=== PATIENT | female | born 1945 | race Caucasian/White ===

== ENCOUNTER 2021-11-27 16:36 | Observation (INO) ==
[2021-11-27] MEDS ORDERED: SODIUM CHLORIDE 500 ML IV STA (17:26)
[2021-11-27] MEDS ORDERED: ZOFRAN 4 MG/2 ML IVP ONE (17:26)
[2021-11-27] MEDS ORDERED: MORPHINE 2 MG/ML SYRINGE IVP ONE (17:26)
[2021-11-27 17:52] LABS: BASOPHILS # (AUTO) 0.1 K/uL (0-0.2); BASOPHILS % (AUTO) 0.8 % (0.0-3.0); EOSINOPHILS # (AUTO) 0.5 K/ul (0.0-0.7); EOSINOPHILS % (AUTO) 5.2 % (0.0-7.0); HEMATOCRIT 33.4 % (37.0-47.0); IMMATURE GRANULOCYTE % (AUTO) 0.3 % (0.0-5.0); LYMPHOCYTES # (AUTO) 3.5 K/uL (0.60-3.4); LYMPHOCYTES % (AUTO) 35.3 (10.0-50.0); MEAN CORPUSCULAR HEMOGLOBIN 26.6 pg (27.0-31.0); MEAN CORPUSCULAR HGB CONC 32.9 (31.8-35.4); MEAN CORPUSCULAR VOLUME 80.7 fl (81.0-99.0); MONOCYTES # (AUTO) 0.6 K/uL (0.4-2.0); MONOCYTES % (AUTO) 6.2 (0-10); NEUTROPHILS # (AUTO) 5.2 K/ul (2.0-6.9); NEUTROPHILS % (AUTO) 52.2 % (42.2-75.2); PLATELET COUNT 249 10^3/uL (140-440); RDW COEFFICIENT OF VARIATION 15.7 % (11.6-14.8); RED BLOOD COUNT 4.14 10^6/ul (4.20-5.40); WHITE BLOOD COUNT 9.87 K/ul (4.6-10.2)
[2021-11-27 17:57] LABS: ALANINE AMINOTRANSFERASE 22.4 U/L (0-35); ALBUMIN 3.99 g/dL (3.5-5.0); ALKALINE PHOSPHATASE 80.6 U/L (53-141); ASPARTATE AMINO TRANSFERASE 34.3 U/L (14-36); BILIRUBIN,TOTAL 0.29 mg/dL (0.2-1.3); BLOOD UREA NITROGEN 16.9 mg/dL (7-17); CALCIUM 9.38 mg/dL (8.4-10.2); CHLORIDE 99.1 mmol/L (98-107); CREATININE 0.83 mg/dL (0.60-1.30); GLUCOSE 187.2 mg/dL (74-106); POTASSIUM 3.74 mmol/L (3.5-5.1); SODIUM 135.4 mmol/L (134.5-145)
[2021-11-27 18:11] LABS: TROPONIN I < 0.012 ng/ml (0.0000-0.120)
--- NOTE | 2021-11-27 18:23 | CT ---
EXAM: CT scan cervical spine HISTORY: Fall COMPARISON CT scan cervical spine 08/07/2019 FINDINGS: Helically acquired axial images obtained through the cervical spine utilizing 2.5-mm colli mation. Sagittal and coronal reconstructions were imaged and reviewed.. The vertebral bodies are no rmal in height. There is 2.6 mm anterolisthesis C2/C3 and 1.7 mm anterolisthesis C7/T1. The facet j oints are intact. There is no acute fracture. There is multilevel central canal and foraminal steno sis. Visualized lung apices are clear. IMPRESSION: No acute findings. All CT scans are performed using dose optimization techniques as appropriate to the performed exam an d include at least one of the following: Automated exposure control, adjustment of the mA and/or kV according t o size, and the use of iterative reconstruction technique.
--- NOTE | 2021-11-27 18:23 | CT ---
EXAM: Brain CT without contrast 11/27/2021 INDICATION: Fall COMPARISON: CT head 08/12/2019. MRI brain 08/20/2021. TECHNIQUE: Unenhanced CT of the head was performed from the skull base to the vertex. FINDINGS: No intracranial hemorrhage or extra-axial collection. No mass, mass effect or midline shift. The garcia -white matter differentiation is preserved. There is generalized cerebral volume loss with compensato ry sulci. No hydrocephalous. There are patchy subcortical and periventricular white matter hypodens ities, most commonly seen in chronic white matter microvascular ischemic changes. The basal cisterns are patent. The visualized paranasal sinuses and mastoid air cells are clear. The orbits are unrem arkable. 1.8 cm intraosseous lucent lesion in the left parietal calvarium. Please review the report of the MRI brain from 08/20/2021. The visualized osseous structures are otherwise intact. Intracran ial vascular calcification. IMPRESSION: - No acute intracranial hemorrhage or mass effect. - 1.8 cm intraosseous lucent lesion in the left parietal calvarium. Please review the report of the MRI brain from 08/20/2021. - Senescent changes. All CT scans are performed using dose optimization techniques as appropriate to the performed exam an d include at least one of the following: Automated exposure control, adjustment of the mA and/or kV according t o size, and the use of iterative reconstruction technique.
[2021-11-27 18:25] LABS: ABG O2 HGB 89.3 % (95-100); ABG PH 7.46 (7.35-7.45); BEecf 8.2 (-2.0-3.0); COHb 1.2 (0.5-1.5); MetHb 1.1 (0-1.5); TCO2 33.4 (19-24)
--- NOTE | 2021-11-27 18:28 | CT ---
EXAM: CT scan chest without contrast HISTORY: Fall COMPARISON: CT scan chest 08/24/2021 FINDINGS: Helically acquired axial images obtained through the thorax without contrast utilizing 5-m m collimation. Sagittal coronal reconstructions were imaged and reviewed. The thoracic inlet is unr emarkable. The ascending aorta is ectatic measuring 3.4 cm. Heart is normal in size with no pericar dial effusion. There is mild coronary artery calcification. Calcification is seen involving mitral valve. Scarring versus atelectasis within the lingula .. Stable nodules are noted within the left l ower lobe. There is no consolidation or effusion. Bone windows reveals no evidence of lytic or tricia tic lesions. IMPRESSION: No acute intrathoracic findings.. Stable left lower lobe pulmonary nodules.. Atelectasis versus scarring within the lingula. All CT scans are performed using dose optimization techniques as appropriate to the performed exam an d include at least one of the following: Automated exposure control, adjustment of the mA and/or kV according t o size, and the use of iterative reconstruction technique.
--- NOTE | 2021-11-27 18:30 | CT ---
EXAM: Noncontrast CT of the abdomen and pelvis HISTORY: Abdominal pain, post surgical COMPARISON: 04/02/2021 TECHNIQUE: Axial noncontrast CT of the abdomen and pelvis with sagittal and coronal reformats. FINDINGS: CT chest CT report for chest findings. Noncontrast technique limits evaluation of abdominal viscera. The unenhanced liver is a mildly nodul ar contour. The gallbladder has been removed. The spleen measures 13.1 cm, increased compared the p rior exam. Punctate calcification of the left adrenal gland. The right adrenal gland appears unrema rkable. The unenhanced kidneys. The pancreas is mildly atrophic. The stomach appears within normal limits. No listhesis is seen without evidence of diverticulitis. The sigmoid colon is incidentally noted to exert mild mass effect on the bladder. There is to modera te colonic stool. Operative of small bowel are seen within the left hemiabdomen. The appendix is no t identified. Calcified atherosclerotic plaque of the aorta and its branches is seen. No free air or free fluid is identified. The peritoneal lymph nodes are seen which do not meet size criteria for significance. There is a mildly prominent periportal lymph node measuring 1.2 cm in the short axis, not significant changed. Osseous structures: There is acute nondisplaced fracture of the right 6th lateral rib. Degenerative changes of the spine are noted. IMPRESSION: Acute nondisplaced fracture of the right 6th lateral rib. No acute abdominal findings. Diverticulosis without evidence of diverticulitis. Mildly nodular hepatic contour suggesting possible cirrhosis. Mild splenomegaly. Other chronic and incidental findings as described above. Noncontrast exam. All CT scans are performed using dose optimization techniques as appropriate to the performed exam an d include at least one of the following: Automated exposure control, adjustment of the mA and/or kV according t o size, and the use of iterative reconstruction technique.
--- NOTE | 2021-11-27 19:29 | DI ---
EXAM: Right knee radiograph; four views 11/27/2021 HISTORY: Pain. Fall. COMPARISON: None. FINDINGS/IMPRESSION: No acute fracture. No dislocation. Tricompartmental degenerative changes. Repeat evaluation in 7-10 days recommended if symptoms persist.
--- NOTE | 2021-11-27 19:31 | DI ---
EXAM: Three views left foot HISTORY: Fall, pain COMPARISON: None available FINDINGS: There is a minimally displaced fracture of the distal aspect of the second proximal phalanx with poss ible extension to the articular surface. No other fracture or dislocation is identified. Small calc aneal spurs are seen. A screw is identified in the talus. No gross soft tissue abnormality is evide nt. IMPRESSION: Minimally displaced fracture of the distal aspect of the second proximal phalanx with possible extens ion to the interphalangeal joint.
[2021-11-27 20:02] LABS: BILIRUBIN,URINE Negative (NEGATIVE); CLARITY,URINE Clear (CLEAR); COLOR,URINE Yellow (YELLOW); GLUCOSE, URINE (UA) Negative (NEGATIVE); KETONES,URINE Negative (NEGATIVE); LEUKOCYTE ESTERASE ,URINE 1+ (NEGATIVE); NITRITE,URINE Negative (NEGATIVE); PROTEIN,URINE Negative (NEGATIVE); URINE, BLOOD Negative (NEGATIVE); UROBILINOGEN,URINE 0.2 (0.2)
[2021-11-27 20:06] LABS: SQUAMOUS EPITHELIAL CELL,UR 0-2 (0-5)
[2021-11-27] MEDS ORDERED: ROCEPHIN 1 GM/50 ML D5W 1 GM/50 ML BAG IV ONE (20:11)
[2021-11-27] MEDS ORDERED: ATROPINE SULFATE PFS IVP PRN ×2 (23:24→23:53)
[2021-11-27] MEDS ORDERED: NITROSTAT SL PRN ×2 (23:24→23:53)
[2021-11-27] MEDS ORDERED: TYLENOL PO PRN ×2 (23:24→23:47)
--- NOTE | 2021-11-28 00:09 | ED.PDOC ---
General ED Provider: Dr. KARYNA WHITE MD Chief Complaint: Chest Wall Injury/Pain Stated Complaint: right lateral chest wall pain x 3 days. fell and hit right side Time Seen by Provider: 11/27/21 16:40 Mode of Arrival: Wheelchair Information Source: Patient Primary Care Provider: SUNI YAO Nursing and Triage Documentation Reviewed and Agree: Yes Does patient meet sepsis criteria?: No If yes, has appropriate treatment been initiated?: No System Inflammatory Response Syndrome: Not Applicable Sepsis Protocol: For patient's 13 years and over: Temp is 96.8 and below OR 101 and greater Pulse >90 BPM Resp >20/minute Acutely Altered Mental Status Are patient's symptoms suggestive of a new infection, such as: -Pneumonia -Skin, Soft Tissue -Endocarditis -UTI -Bone, Joint Infection -Implantable Device -Acute Abdominal Infection -Wound Infection -Meningitis -Blood Stream Catheter Infection -Unknown Review of Systems Review Of Systems Constitutional: Reports No symptoms Eyes: Reports No symptoms Ears, Nose, Mouth, Throat: Reports No symptoms Respiratory: Reports Other (right chest wall pain) Cardiac: Reports No symptoms GI: Reports No symptoms : Reports No symptoms Musculoskeletal: Reports No symptoms Skin: Reports No symptoms Neurological: Reports No symptoms Endocrine: Reports No symptoms Hematologic/Lymphatic: Reports No symptoms All Other Systems: Reviewed and Negative [facility] Medical History Diabetes Seizure Social History Smoking and tobacco status: Never smoker Substance use type: does not use Female Reproductive History Menstrual Hx Hysterectomy: No Hx Tubal Ligation: No Physical Exam Physical Exam Appearance: Reports Well-appearing, No pain distress and Well-nourished Ill-appearing: None Pain Distress: None Eyes: Reports PARAM, EOMI and Conjunctiva clear ENT: Reports Ears normal, Nose normal and Oropharynx normal Neck: Supple Respiratory: Reports Airway patent, Breath sounds clear, Breath sounds equal, Respirations nonlabored and Other (mildly tender lateral right chest wall) Cardiovascular: Reports RRR, Pulses normal, No rub and No murmur GI/: Reports Soft, Nontender, No masses, Bowel sounds normal and No Organomegaly Musculoskeletal: Reports Normal strength, ROM intact, No edema and No calf tenderness Skin: Reports Warm, Dry and Normal color Neurological: Reports Sensation intact, Motor intact, Reflexes intact, Cranial nerves intact, Alert and Oriented Psychiatric: Reports Affect appropriate and Mood appropriate Interpretation Radiology Interpretation Radiology Interpretation By: Radiologist Xray Comments: see the report. Re-Evaluation Re-Evaluation Time of Re-Evaluation: 17:34 Status: Improved Vital Signs Stable: Yes Pain Level: 2 Appearance: NAD Lungs: Clear Skin: Warm and Dry Neuro: Alert and Oriented X3 CV: RRR Critical Care Note Critical Care Note Total Critical Care Time (mins): 0 Course Course Hematology/Chemistry: 11/28/21 05:40 11/28/21 05:40 Orders, Labs, Meds: Lab Review 11/27/21 11/27/21 11/27/21 12:03 17:42 17:42 WBC 9.87 RBC 4.14 L Hgb 11.0 L Hct 33.4 L MCV 80.7 L MCH 26.6 L MCHC 32.9 RDW Coeff of Alexander 15.7 H Plt Count 249 Immature Gran % (Auto) 0.3 Neut % (Auto) 52.2 Lymph % (Auto) 35.3 [place] % (Auto) 6.2 Eos % (Auto) 5.2 Baso % (Auto) 0.8 Neut # (Auto) 5.2 Lymph # (Auto) 3.5 H [place] # (Auto) 0.6 Eos # (Auto) 0.5 Baso # (Auto) 0.1 Immature Gran # (Auto) 0.0 Puncture Site Base Excess O2 Saturation ABG pH ABG pCO2 ABG pO2 ABG HCO3 ABG Total CO2 Hemoglobin Oxyhemoglobin Carboxyhemoglobin Total Hemoglobin FiO2 % Sodium 135.4 Potassium 3.74 Chloride 99.1 Carbon Dioxide 29.0 Anion Gap 11.04 BUN 16.9 Creatinine 0.83 Estimated GFR (MDRD) 67.00 BUN/Creatinine Ratio 20.36 Glucose 187.2 H Calcium 9.38 Total Bilirubin 0.29 AST 34.3 ALT 22.4 Alkaline Phosphatase 80.6 Total Creatine Kinase 44.3 Troponin I < 0.012 < 0.012 Total Protein 7.30 Albumin 3.99 Globulin 3.31 Albumin/Globulin Ratio 1.20 Urine Color Urine Clarity Urine pH Ur Specific [place] Urine Protein Urine Glucose (UA) Urine Ketones Urine Blood Urine Nitrite Urine Bilirubin Urine Urobilinogen Ur Leukocyte Esterase Urine Microscopic WBC Ur Squamous Epith Cells SARS CoV-2 RNA Rapid SABINA 11/27/21 11/27/2111/27/22 18:09 19:20 19:35 WBC RBC Hgb Hct MCV MCH MCHC RDW Coeff of Alexander Plt Count Immature Gran % (Auto) Neut % (Auto) Lymph % (Auto) [place] % (Auto) Eos % (Auto) Baso % (Auto) Neut # (Auto) Lymph # (Auto) [place] # (Auto) Eos # (Auto) Baso # (Auto) Immature Gran # (Auto) Puncture Site Lbrach Base Excess 8.2 H O2 Saturation 92.0 L ABG pH 7.46 H ABG pCO2 45.0 ABG pO2 60.0 L ABG HCO3 32.0 H ABG Total CO2 33.4 H Hemoglobin 1.1 Oxyhemoglobin 89.3 L Carboxyhemoglobin 1.2 Total Hemoglobin 11.0 L FiO2 % 21.0 Sodium Potassium Chloride Carbon Dioxide Anion Gap BUN Creatinine Estimated GFR (MDRD) BUN/Creatinine Ratio Glucose Calcium Total Bilirubin AST ALT Alkaline Phosphatase Total Creatine Kinase Troponin I Total Protein Albumin Globulin Albumin/Globulin Ratio Urine Color Yellow Urine Clarity Clear Urine pH 6.0 Ur Specific [place] 1.015 Urine Protein Negative Urine Glucose (UA) Negative Urine Ketones Negative Urine Blood Negative Urine Nitrite Negative Urine Bilirubin Negative Urine Urobilinogen 0.2 Ur Leukocyte Esterase 1+ H Urine Microscopic WBC 2-5 Ur Squamous Epith Cells 0-2 SARS CoV-2 RNA Rapid SABINA Negative Orders Category Date Time Status ABG DRAW REQUEST Stat CARDIO 11/27/21 17:29 Completed EKG-(ED ONLY) Stat CARDIO 11/27/21 17:26 Completed Saline Lock [ED IV/MEDIPORT/POWERPORT] .ONCE EMERGENCY 11/27/21 17:26 Active ABG COOX Stat LAB 11/27/21 18:09 Completed CBC W/ AUTO DIFF Stat LAB 11/27/21 17:42 Completed COMPREHENSIVE METABOLIC PANEL Stat LAB 11/27/21 17:42 Completed COVID [SARS COV-2 RNA RAPID SABINA] Stat LAB 11/27/21 19:20 Completed TROPONIN I Stat LAB 11/27/21 17:42 Completed URINALYSIS C & S IF INDICATED Stat LAB 11/27/21 19:35 Completed 0.9 % Sodium Chloride [Saline Flush] MEDS 11/27/21 17:26 Active 1 syr IVF PRN PRN Ceftriaxone/D5w 1 gm Premix [Rocephin 1 gm/50 ml D5w] MEDS 11/27/21 20:11 Discontinued 1 gm in 50 ml IV ONCE Morphine Sulfate [Morphine 2 mg/ml Syringe] MEDS 11/27/21 17:26 Discontinued 2 mg IVP ONCE ONE Ondansetron HCl/Pf [Zofran 4 mg/2 ml] MEDS 11/27/21 17:26 Discontinued 4 mg IVP ONCE ONE Sodium Chloride 0.9% [Sodium Chloride] 500 ml MEDS 11/27/21 17:[address] ABDOMEN/PELVIS WO CONTRAST Stat RADS 11/27/21 17:[address] CERVICAL SPINE W/O CONTRAST Stat RADS 11/27/21 17:[address] CHEST W/O CONTRAST Stat RADS 11/27/21 17:[address] HEAD W/O CONTRAST Stat RADS 11/27/21 17:26 Completed FOOT, LEFT 3 VIEWS Stat RADS 11/27/21 19:00 Completed KNEE, RIGHT 4 VIEWS Stat RADS 11/27/21 19:00 Completed Medications Generic Name Dose Route Start Last Admin Trade Name Kathleen PRN Reason Stop Dose Admin Acetaminophen 650 mg 11/28/21 21:00 Acetaminophen 325 Mg Tablet PO BID [facility] Acetaminophen 650 mg 11/28/21 11:30 Acetaminophen 325 Mg Tablet PO Q4H PRN Headache Allopurinol 300 mg 11/28/21 09:00 11/28/21 09:01 Allopurinol 100 Mg Tablet PO 300 mg DAILY AMPARO Administration Alprazolam 0.5 mg 11/28/21 00:26 Alprazolam 0.5 Mg Tablet PO BID PRN Anxiety Aspirin 81 mg 11/28/21 08:30 11/28/21 09:00 Aspirin 81 Mg Tablet. PO 81 mg DAILYWM AMPARO Administration Atropine Sulfate 0.5 mg 11/27/21 23:24 Atropine Sulfate Inj 1 Mg/10 Ml Disp.Syrin IVP ONCE PRN Symptomatic Bradycardia Cholecalciferol 1,000 unit 11/28/21 09:00 11/28/21 09:01 Cholecalciferol (Vitamin D3) 1,000 Unit (25 Mcg) Tablet PO 1,000 unit DAILY AMPARO Administration Cyclobenzaprine HCl 5 mg 11/28/21 21:00 Cyclobenzaprine Hcl 10 Mg Tablet PO BEDTIME [facility] Duloxetine HCl 60 mg 11/28/21 09:00 11/28/21 09:01 Duloxetine Hcl 30 Mg Capsule. PO 60 mg DAILY AMPARO Administration Gabapentin 200 mg 11/28/21 09:00 11/28/21 09:01 Gabapentin 100 Mg Capsule PO 200 mg DAILY AMPARO Administration Hydroxyzine HCl 25 mg 11/28/21 09:00 11/28/21 09:01 Hydroxyzine Hcl 25 Mg Tablet PO 25 mg DAILY AMPARO Administration Sodium Chloride 1,000 mls @ 75 mls/hr 11/27/21 23:45 11/28/21 01:03 Sodium Chloride IV 75 mls/hr .[id number] AMPARO Administration CEFTRIAXONE/D5W 1 GM PREMIX 1 gm in 50 mls @ 75 mls/hr 11/28/21 21:00 Rocephin 1 Gm/50 Ml D5w IV 12/01/21 20:59 BEDTIME AMPARO Loperamide HCl 2 mg 11/28/21 00:26 Loperamide Hcl 2 Mg Tablet PO Q2-4H PRN Diarrhea Loratadine 10 mg 11/28/21 00:43 Loratadine 10 Mg Tablet PO DAILY PRN Allergy Symptoms Meclizine HCl 25 mg 11/28/21 00:26 Meclizine Hcl 25 Mg Tablet PO DAILY PRN Dizziness Midodrine 2.5 mg 11/28/21 06:30 11/28/21 11:59 Midodrine Hcl 5 Mg Tablet PO 2.5 mg TIDAC AMPARO Administration Nitroglycerin 0.4 mg 11/27/21 23:24 Nitroglycerin 0.4 Mg Tab.Subl SL Q5MIN X 3 DOSES PRN Chest Pain Non-Formulary Medication 200 mg 11/28/21 09:00 11/28/21 09:05 Coenzyme Q10 [Coq-10] PO Not Given DAILY AMPARO Non-Formulary Medication 100 mg 11/28/21 09:00 11/28/21 09:05 Lacosamide PO Not Given BID AMPARO Non-Formulary Medication 7 mg 11/28/21 09:00 11/28/21 09:05 Semaglutide [Rybelsus] PO Not Given QDAC AMPARO Omeprazole 20 mg 11/28/21 09:00 11/28/21 09:00 Omeprazole 20 Mg Capsule. PO 20 mg QDAC AMPARO Administration Simvastatin 40 mg 11/28/21 21:00 Simvastatin 40 Mg Tablet PO BEDTIME AMPARO Sodium Chloride 1 syr 11/27/21 17:26 11/27/21 18:17 0.9% Sodium Chloride 10 Ml Disp.Syrin IVF 1 syr PRN PRN Administration To flush IV Sodium Chloride 1 syr 11/28/21 05:00 11/28/21 12:02 0.9% Sodium Chloride 10 Ml Disp.Syrin IVF Not Given Q8HR AMPARO Tramadol HCl 50 mg 11/28/21 21:00 Tramadol Hcl 50 Mg Tablet PO BID AMPARO Trazodone HCl 100 mg 11/28/21 00:30 11/28/21 01:00 Trazodone Hcl 50 Mg Tablet PO 100 mg BEDTIME AMPARO Administration Venlafaxine HCl 37.5 mg 11/28/21 21:00 Venlafaxine Hcl 37.5 Mg Cap.Er.24h PO BEDTIME AMPARO Venlafaxine HCl 75 mg 11/28/21 09:00 11/28/21 09:01 Venlafaxine Hcl 75 Mg Cap.Er.24h PO 75 mg DAILY AMPARO Administration Discontinued Medications Generic Name Dose Route Start Last Admin Trade Name Freq PRN Reason Stop Dose Admin Acetaminophen 650 mg 11/27/21 23:24 Acetaminophen 325 Mg Tablet PO Q4H PRN Headache Aspirin 81 mg 11/28/21 09:00 Aspirin 81 Mg Tablet.Dr PO DAILY [facility] Cyclobenzaprine HCl 5 mg 11/28/21 00:43 11/28/21 00:59 Cyclobenzaprine Hcl 10 Mg Tablet PO 11/28/21 00:44 5 mg ONCE STA Administration Sodium Chloride 500 mls @ 500 mls/hr 11/27/21 17:26 11/27/21 18:15 Sodium Chloride IV 11/27/21 18:25 500 mls/hr BOLUS STA Administration CEFTRIAXONE/D5W 1 GM PREMIX 1 gm in 50 mls @ 75 mls/hr 11/27/21 20:11 11/27/21 20:44 Rocephin 1 Gm/50 Ml D5w IV 11/27/21 20:50 75 mls/hr ONCE ONE Administration Ketorolac Tromethamine 15 mg 11/28/21 11:16 11/28/21 12:32 Ketorolac Tromethamine 15 Mg/Ml Vial IVP 11/28/21 11:17 15 mg ONCE ONE Administration Morphine Sulfate 2 mg 11/27/21 17:26 11/27/21 18:21 Morphine Sulfate 2 Mg/Ml Syringe IVP 11/27/21 17:27 2 mg ONCE ONE Administration Ondansetron HCl 4 mg 11/27/21 17:26 11/27/21 18:18 Ondansetron Hcl/Pf 4 Mg/2 Ml Sdv IVP 11/27/21 17:27 4 mg ONCE ONE Administration Vital Signs: Temp Pulse Resp BP Pulse Ox 11/27/21 16:37 98.3 F 93 H 20 160/90 H 94 L Discharge Plan Discharge Patient Disposition: ADMITTED INPATIENT Discharge Problem: UTI (urinary tract infection), Chest wall pain 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
[2021-11-28 00:20] VITALS: BMI 34.4
[2021-11-28 00:20] LABS: CREATINE KINASE 44.3 U/L (30-135)
[2021-11-28] MEDS ORDERED: ANTIVERT PO PRN (00:26)
[2021-11-28] MEDS ORDERED: XANAX PO PRN (00:26)
[2021-11-28] MEDS ORDERED: IMODIUM PO PRN (00:26)
[2021-11-28 00:34] LABS: TROPONIN I < 0.012 ng/ml (0.0000-0.120)
[2021-11-28] MEDS ORDERED: FLEXERIL PO STA (00:43)
[2021-11-28] MEDS ORDERED: CLARITIN PO PRN (00:43)
[2021-11-28] MEDS: DESYREL PO SCH ×2 (01:00→20:30)
[2021-11-28] MEDS: SODIUM CHLORIDE 1,000 ML IV SCH ×2 (01:03→13:33)
[2021-11-28] MEDS: MIDODRINE PO SCH ×3 (05:33→16:24)
[2021-11-28 05:48] LABS: BASOPHILS # (AUTO) 0.1 K/uL (0-0.2); BASOPHILS % (AUTO) 1.1 % (0.0-3.0); EOSINOPHILS # (AUTO) 0.5 K/ul (0.0-0.7); EOSINOPHILS % (AUTO) 6.4 % (0.0-7.0); HEMATOCRIT 32.4 % (37.0-47.0); HEMOGLOBIN 10.4 g/dl (12.0-16.0); IMMATURE GRANULOCYTE % (AUTO) 0.1 % (0.0-5.0); LYMPHOCYTES # (AUTO) 2.4 K/uL (0.60-3.4); LYMPHOCYTES % (AUTO) 33.4 (10.0-50.0); MEAN CORPUSCULAR HEMOGLOBIN 26.1 pg (27.0-31.0); MEAN CORPUSCULAR HGB CONC 32.1 (31.8-35.4); MEAN CORPUSCULAR VOLUME 81.4 fl (81.0-99.0); MONOCYTES # (AUTO) 0.4 K/uL (0.4-2.0); MONOCYTES % (AUTO) 5.5 (0-10); NEUTROPHILS # (AUTO) 3.9 K/ul (2.0-6.9); NEUTROPHILS % (AUTO) 53.5 % (42.2-75.2); PLATELET COUNT 212 10^3/uL (140-440); RDW COEFFICIENT OF VARIATION 15.8 % (11.6-14.8); RED BLOOD COUNT 3.98 10^6/ul (4.20-5.40); WHITE BLOOD COUNT 7.31 K/ul (4.6-10.2)
[2021-11-28 06:01] LABS: ALANINE AMINOTRANSFERASE 19.3 U/L (0-35); ALBUMIN 3.72 g/dL (3.5-5.0); ALKALINE PHOSPHATASE 81.7 U/L (53-141); ASPARTATE AMINO TRANSFERASE 27.9 U/L (14-36); BILIRUBIN,TOTAL 0.22 mg/dL (0.2-1.3); BLOOD UREA NITROGEN 13.1 mg/dL (7-17); CALCIUM 8.89 mg/dL (8.4-10.2); CARBON DIOXIDE 32.2 mmol/L (22-30.0); CHLORIDE 100.5 mmol/L (98-107); CREATININE 0.88 mg/dL (0.60-1.30); GLUCOSE 175.3 mg/dL (74-106); POTASSIUM 3.67 mmol/L (3.5-5.1); SODIUM 138.6 mmol/L (134.5-145); TOTAL PROTEIN 6.86 g/dL (6.3-8.2)
[2021-11-28 07:58] LABS: CREATINE KINASE 42.5 U/L (30-135)
[2021-11-28 08:13] LABS: TROPONIN I < 0.012 ng/ml (0.0000-0.120)
[2021-11-28] MEDS ORDERED: ASPIRIN EC PO SCH (09:00)
[2021-11-28] MEDS: PRILOSEC PO SCH (09:00)
[2021-11-28] MEDS: ASPIRIN EC PO SCH (09:00)
[2021-11-28] MEDS: VITAMIN D PO SCH (09:01)
[2021-11-28] MEDS: CYMBALTA PO SCH (09:01)
[2021-11-28] MEDS: ZYLOPRIM PO SCH (09:01)
[2021-11-28] MEDS: EFFEXOR XR PO SCH ×2 (09:01→20:30)
[2021-11-28] MEDS: ATARAX PO SCH (09:01)
[2021-11-28] MEDS: NEURONTIN PO SCH (09:01)
[2021-11-28] MEDS: NON-FORMULARY MEDICATION (Coenzyme Q10 [Coq-10] 100 mg Capsule) PO SCH (09:05)
[2021-11-28] MEDS: LACOSAMIDE 100 MG PO SCH ×2 (09:05→20:30)
[2021-11-28] MEDS ORDERED: TORADOL IVP ONE (11:16)
[2021-11-28] MEDS: FLEXERIL PO SCH (20:29)
[2021-11-28] MEDS: ZOCOR PO SCH (20:30)
[2021-11-28] MEDS: TYLENOL PO SCH (20:30)
[2021-11-28] MEDS: ULTRAM PO SCH (20:30)
[2021-11-28] MEDS ORDERED: ROCEPHIN 1 GM/50 ML D5W 1 GM/50 ML BAG IV SCH (21:00)
[2021-11-28] MEDS ORDERED: VENLAFAXINE 37.5 MG PO SCH (21:00)
[2021-11-29] MEDS: SODIUM CHLORIDE 1,000 ML IV SCH ×3 (00:42→13:06)
[2021-11-29 05:08] LABS: BASOPHILS # (AUTO) 0.1 K/uL (0-0.2); BASOPHILS % (AUTO) 0.9 % (0.0-3.0); EOSINOPHILS # (AUTO) 0.5 K/ul (0.0-0.7); EOSINOPHILS % (AUTO) 6.9 % (0.0-7.0); HEMATOCRIT 30.5 % (37.0-47.0); HEMOGLOBIN 9.7 g/dl (12.0-16.0); IMMATURE GRANULOCYTE % (AUTO) 0.4 % (0.0-5.0); LYMPHOCYTES # (AUTO) 2.6 K/uL (0.60-3.4); LYMPHOCYTES % (AUTO) 33.2 (10.0-50.0); MEAN CORPUSCULAR HEMOGLOBIN 26.1 pg (27.0-31.0); MEAN CORPUSCULAR HGB CONC 31.8 (31.8-35.4); MEAN CORPUSCULAR VOLUME 82.2 fl (81.0-99.0); MONOCYTES # (AUTO) 0.5 K/uL (0.4-2.0); MONOCYTES % (AUTO) 6.6 (0-10); PLATELET COUNT 219 10^3/uL (140-440); RDW COEFFICIENT OF VARIATION 15.9 % (11.6-14.8); RED BLOOD COUNT 3.71 10^6/ul (4.20-5.40); WHITE BLOOD COUNT 7.77 K/ul (4.6-10.2)
[2021-11-29 05:22] LABS: ALANINE AMINOTRANSFERASE 19.1 U/L (0-35); ALBUMIN 3.34 g/dL (3.5-5.0); ALKALINE PHOSPHATASE 80.9 U/L (53-141); BILIRUBIN,TOTAL 0.14 mg/dL (0.2-1.3); BLOOD UREA NITROGEN 14.2 mg/dL (7-17); CALCIUM 8.74 mg/dL (8.4-10.2); CARBON DIOXIDE 25.5 mmol/L (22-30.0); CHLORIDE 104.1 mmol/L (98-107); CREATININE 0.9 mg/dL (0.60-1.30); GLUCOSE 193.8 mg/dL (74-106); POTASSIUM 3.77 mmol/L (3.5-5.1); SODIUM 135.9 mmol/L (134.5-145); TOTAL PROTEIN 6.31 g/dL (6.3-8.2)
[2021-11-29] MEDS: PRILOSEC PO SCH (05:55)
[2021-11-29] MEDS: MIDODRINE PO SCH (06:47)
[2021-11-29] MEDS: ASPIRIN EC PO SCH (08:58)
[2021-11-29] MEDS: NEURONTIN PO SCH (08:58)
[2021-11-29] MEDS: TYLENOL PO SCH ×2 (08:59→20:38)
[2021-11-29] MEDS: EFFEXOR XR PO SCH ×2 (09:00→20:37)
[2021-11-29] MEDS: VITAMIN D PO SCH (09:01)
[2021-11-29] MEDS: CYMBALTA PO SCH (09:02)
[2021-11-29] MEDS: ZYLOPRIM PO SCH (09:02)
[2021-11-29] MEDS: ULTRAM PO SCH ×2 (09:03→20:37)
[2021-11-29] MEDS: ATARAX PO SCH (09:04)
[2021-11-29] MEDS: LACOSAMIDE 100 MG PO SCH ×2 (09:07→20:40)
[2021-11-29] MEDS: NON-FORMULARY MEDICATION (Coenzyme Q10 [Coq-10] 100 mg Capsule) PO SCH (09:16)
[2021-11-29] MEDS ORDERED: MIDODRINE PO SCH (11:00)
[2021-11-29] MEDS ORDERED: TORADOL IVP ONE (12:35)
[2021-11-29] MEDS ORDERED: MIDODRINE PO PRN (16:16)
[2021-11-29] MEDS: KEFLEX PO SCH ×2 (17:36→20:37)
[2021-11-29] MEDS: TYLENOL PO PRN (17:37)
[2021-11-29] MEDS: FLEXERIL PO SCH (20:35)
[2021-11-29] MEDS: ZOCOR PO SCH (20:37)
[2021-11-29] MEDS: DESYREL PO SCH (20:38)
[2021-11-29] MEDS: TORADOL IVP SCH (20:39)
[2021-11-30] MEDS: SODIUM CHLORIDE 1,000 ML IV SCH (02:28)
[2021-11-30 05:29] LABS: BASOPHILS # (AUTO) 0.1 K/uL (0-0.2); EOSINOPHILS # (AUTO) 0.6 K/ul (0.0-0.7); EOSINOPHILS % (AUTO) 9.3 % (0.0-7.0); HEMATOCRIT 31.6 % (37.0-47.0); HEMOGLOBIN 10.3 g/dl (12.0-16.0); IMMATURE GRANULOCYTE % (AUTO) 0.3 % (0.0-5.0); LYMPHOCYTES % (AUTO) 33.7 (10.0-50.0); MEAN CORPUSCULAR HEMOGLOBIN 26.8 pg (27.0-31.0); MEAN CORPUSCULAR HGB CONC 32.6 (31.8-35.4); MEAN CORPUSCULAR VOLUME 82.1 fl (81.0-99.0); MONOCYTES # (AUTO) 0.4 K/uL (0.4-2.0); MONOCYTES % (AUTO) 6.3 (0-10); NEUTROPHILS % (AUTO) 49.4 % (42.2-75.2); PLATELET COUNT 212 10^3/uL (140-440); RDW COEFFICIENT OF VARIATION 15.8 % (11.6-14.8); RED BLOOD COUNT 3.85 10^6/ul (4.20-5.40); WHITE BLOOD COUNT 6.05 K/ul (4.6-10.2)
[2021-11-30 05:44] LABS: ALANINE AMINOTRANSFERASE 22.5 U/L (0-35); ALBUMIN 3.32 g/dL (3.5-5.0); ALKALINE PHOSPHATASE 78.8 U/L (53-141); ASPARTATE AMINO TRANSFERASE 29.7 U/L (14-36); BILIRUBIN,TOTAL 0.19 mg/dL (0.2-1.3); BLOOD UREA NITROGEN 12.6 mg/dL (7-17); CALCIUM 8.78 mg/dL (8.4-10.2); CARBON DIOXIDE 28.6 mmol/L (22-30.0); CHLORIDE 103.8 mmol/L (98-107); CREATININE 0.85 mg/dL (0.60-1.30); POTASSIUM 3.83 mmol/L (3.5-5.1); SODIUM 138.7 mmol/L (134.5-145); TOTAL PROTEIN 6.23 g/dL (6.3-8.2)
[2021-11-30] MEDS: KEFLEX PO SCH ×3 (05:58→20:36)
[2021-11-30] MEDS: TORADOL IVP SCH (05:58)
[2021-11-30] MEDS: PRILOSEC PO SCH (05:58)
[2021-11-30] MEDS: ATARAX PO SCH (09:44)
[2021-11-30] MEDS: TYLENOL PO PRN (09:44)
[2021-11-30] MEDS: CYMBALTA PO SCH (09:44)
[2021-11-30] MEDS: EFFEXOR XR PO SCH ×2 (09:44→20:36)
[2021-11-30] MEDS: ASPIRIN EC PO SCH (09:45)
[2021-11-30] MEDS: ZYLOPRIM PO SCH (09:45)
[2021-11-30] MEDS: NEURONTIN PO SCH (09:45)
[2021-11-30] MEDS: VITAMIN D PO SCH (09:46)
[2021-11-30] MEDS: ULTRAM PO SCH ×3 (09:46→20:36)
[2021-11-30] MEDS: TYLENOL PO SCH ×2 (09:47→20:37)
[2021-11-30] MEDS: LACOSAMIDE 100 MG PO SCH ×2 (09:48→20:35)
[2021-11-30] MEDS: NON-FORMULARY MEDICATION (Coenzyme Q10 [Coq-10] 100 mg Capsule) PO SCH (09:49)
--- NOTE | 2021-11-30 09:54 | PCM.PROG ---
Attending Provider: ATTENDING PROVIDER: Dr. SUNI YAO This patient is seen with Savannah Washington, Nurse Practitioner. DATE OF SERVICE: 11/30/21 SUBJECTIVE: This 76 year old /WHITE F was hospitalized 11/27/21. Pain has been controlled. Has been eating well. Has not been up much, we will do PT consult. REVIEW OF SYSTEMS: CONSTITUTIONAL: No night sweats. No fatigue, malaise, lethargy. No fever or chills. Weakness. HEENT: Eyes: No visual changes. No eye pain. No eye discharge. ENT: No runny nose. No epistaxis. No sinus pain. No odynophagia. No congestion. RESPIRATORY: No cough, no congestion. No hemoptysis. No shortness of breath. CARDIOVASCULAR: No angina symptoms. No CHF symptoms. No atypical chest pain for CAD. No palpitations. No orthopnea.. GASTROINTESTINAL: No abdominal pain. No nausea or vomiting. No diarrhea or constipation. No hematemesis. No hematochezia. GENITOURINARY: No urgency. No frequency. No dysuria. No hematuria. No obstructive symptoms. No discharge. No pain. No significant abnormal bleeding. MUSCULOSKELETAL: No musculoskeletal pain; no joint swelling. Right side pain. NEUROLOGICAL: Awake, alert, oriented to time, place and person. No headache. No neck pain. No syncope. No seizures. No dizziness. PSYCHIATRIC: Not anxious. No depression. No suicidal thoughts. No homicidal thoughts. SKIN: No rash. No lesions. No wounds. ENDOCRINE: No unexplained weight loss. No weight gain. HEMATOLOGIC/LYMPHATIC: No anemia. No purpura. No petechiae. No prolonged or excessive bleeding. No palpable lymph nodes. PHYSICAL EXAMINATION: GENERAL: The patient is awake, alert and oriented, sitting in bed in no distress. VITAL SIGNS: Temperature 97 F, Pulse 94, Respiratory Rate 20, BP 142/86, Pulse Ox 93% HEENT: Head normocephalic, atraumatic. Eyes: Extraocular muscles are intact. Pupils are equal, round and reactive to light and accommodation. Ears: No lesions. Nose appeared normal. Throat: No exudate or erythema. NECK: Supple. No JVD, no carotid bruit. No lymphadenopathy or thyromegaly. LUNGS: Diminished breath sounds. Clear to auscultation. Percussion note normal. Chest symmetrical. HEART: S1, S2, no S3. No murmurs. Palpable right chest wall pain. No cyanosis or clubbing. No ascites. Pulses: Dorsalis pedis and posterior tibial pulses +1 to +2 both sides. ABDOMEN: Soft. Non-tender. Bowel sounds active. No CVA tenderness. No mass felt. EXTREMITIES: No edema. Full range of motion of all extremities, equal. NEUROLOGIC: No focal deficit. Cranial nerves II through XII are grossly intact. No headache. No double vision. SKIN: Not dry. Intact. Turgor-normal. LYMPHATIC: No palpable lymph nodes/no lymphedema. MUSCULOSKELETAL: Normal joints with no swelling. Muscle tone is normal. LAB REVIEW: 11/30/21 04:48 11/30/21 04:48 11/30/21 04:48: Sodium 138.7, Potassium 3.83, Chloride 103.8, Carbon Dioxide 28.6, Anion Gap 10.13, BUN 12.6, Creatinine 0.85, Estimated GFR (MDRD) 65.00, BUN/Creatinine Ratio 14.82, Glucose 192.0 H, Calcium 8.78, Total Bilirubin 0.19 L, AST 29.7, ALT 22.5, Alkaline Phosphatase 78.8, Total Protein 6.23 L, Albumin 3.32 L, Globulin 2.91, Albumin/Globulin Ratio 1.14 11/30/21 04:48: WBC 6.05, RBC 3.85 L, Hgb 10.3 L, Hct 31.6 L, MCV 82.1, MCH 26.8 L, MCHC 32.6, RDW Coeff of Alexander 15.8 H, Plt Count 212, Immature Gran % (Auto) 0.3, Neut % (Auto) 49.4, Lymph % (Auto) 33.7, [place] % (Auto) 6.3, Eos % (Auto) 9.3 H, Baso % (Auto) 1.0, Neut # (Auto) 3.0, Lymph # (Auto) 2.0, [place] # (Auto) 0.4, Eos # (Auto) 0.6, Baso # (Auto) 0.1, Immature Gran # (Auto) 0.0 ASSESSMENT: Please see below. 1. Status post fall 2. Right chest wall pain 3. Right 6th rib fracture 4. UTI 5. Diabetes Mellitus type II PLAN: 1. Discontinue Toradol 2. Discontinue IV fluid 3. Tramadol 50mg TID scheduled 4. PT/OT consult 5. Anticipate possible discharge tomorrow. Plan and coordination of the patient's care discussed in the presence of Director Family and nurse. SCRIBED BY: Torrey JOHNSON scribed while in presence of service performed by Dr. Yao/Savannah Washington APRN on 11/30/21 ([id number])
--- NOTE | 2021-11-30 13:43 | PN ---
DATE OF SERVICE: 11/27/21 SUBJECTIVE: The patient was admitted through the emergency room, she had fallen at home and had left sided chest pain. On further workup the patient had fracture of the 6th rib. No pneumothorax according to the Dr. Martinez. The patient's arterial blood gasses were acceptable, pO2 60 and oxygen saturation of 92% on room air. The patient has multiple other medical problems. Cardiovascular status is stable. She is going to be hospitalized with left sided chest pain with fracture of the right 6th rib. The patient will be treated for pain control. We will monitor with telemetry. TIME SPENT: More than 30 minutes. Plan and coordination of the patient's care discussed in the presence of nurse. HERACLIO
[2021-11-30] MEDS: FLEXERIL PO SCH (20:36)
[2021-11-30] MEDS: DESYREL PO SCH (20:36)
[2021-11-30] MEDS: ZOCOR PO SCH (20:37)
[2021-12-01] MEDS: TYLENOL PO PRN (01:52)
[2021-12-01 05:06] LABS: BASOPHILS # (AUTO) 0.1 K/uL (0-0.2); BASOPHILS % (AUTO) 0.9 % (0.0-3.0); EOSINOPHILS # (AUTO) 0.6 K/ul (0.0-0.7); EOSINOPHILS % (AUTO) 9.1 % (0.0-7.0); HEMOGLOBIN 10.2 g/dl (12.0-16.0); IMMATURE GRANULOCYTE % (AUTO) 0.3 % (0.0-5.0); LYMPHOCYTES # (AUTO) 2.2 K/uL (0.60-3.4); LYMPHOCYTES % (AUTO) 31.8 (10.0-50.0); MEAN CORPUSCULAR HEMOGLOBIN 26.8 pg (27.0-31.0); MEAN CORPUSCULAR HGB CONC 32.9 (31.8-35.4); MEAN CORPUSCULAR VOLUME 81.6 fl (81.0-99.0); MONOCYTES # (AUTO) 0.4 K/uL (0.4-2.0); MONOCYTES % (AUTO) 5.5 (0-10); NEUTROPHILS # (AUTO) 3.6 K/ul (2.0-6.9); NEUTROPHILS % (AUTO) 52.4 % (42.2-75.2); PLATELET COUNT 216 10^3/uL (140-440); RDW COEFFICIENT OF VARIATION 15.9 % (11.6-14.8); WHITE BLOOD COUNT 6.85 K/ul (4.6-10.2)
[2021-12-01 05:17] LABS: ALBUMIN 3.27 g/dL (3.5-5.0); ALKALINE PHOSPHATASE 77.4 U/L (53-141); ASPARTATE AMINO TRANSFERASE 25.2 U/L (14-36); BILIRUBIN,TOTAL 0.3 mg/dL (0.2-1.3); BLOOD UREA NITROGEN 13.1 mg/dL (7-17); CALCIUM 9.07 mg/dL (8.4-10.2); CARBON DIOXIDE 31.7 mmol/L (22-30.0); CHLORIDE 102.3 mmol/L (98-107); CREATININE 0.92 mg/dL (0.60-1.30); GLUCOSE 170.3 mg/dL (74-106); POTASSIUM 3.74 mmol/L (3.5-5.1); SODIUM 137.9 mmol/L (134.5-145); TOTAL PROTEIN 6.25 g/dL (6.3-8.2)
[2021-12-01] MEDS: PRILOSEC PO SCH (05:30)
[2021-12-01] MEDS: KEFLEX PO SCH ×3 (05:30→20:21)
[2021-12-01] MEDS ORDERED: DECADRON IM ONE (09:05)
--- NOTE | 2021-12-01 09:11 | PCM.PROG ---
Attending Provider: ATTENDING PROVIDER: Dr. SUNI YAO DATE OF SERVICE: 12/01/21 SUBJECTIVE: This 76 year old /WHITE F was hospitalized 11/27/21 with 6th right rib fracture, still has pleuritic pain and mild cough. Pain is still there. Pain as described sharp pain rated at 4. REVIEW OF SYSTEMS: CONSTITUTIONAL: No night sweats. No fatigue, malaise, lethargy. No fever or chills. HEENT: Eyes: No visual changes. No eye pain. No eye discharge. ENT: No runny nose. No epistaxis. No sinus pain. No odynophagia. No congestion. RESPIRATORY: No cough, no congestion. No hemoptysis. No shortness of breath. CARDIOVASCULAR: No angina symptoms. No CHF symptoms. No atypical chest pain for CAD. No palpitations. No orthopnea.. GASTROINTESTINAL: No abdominal pain. No nausea or vomiting. No diarrhea or constipation. No hematemesis. No hematochezia. GENITOURINARY: No urgency. No frequency. No dysuria. No hematuria. No obstructive symptoms. No discharge. No pain. No significant abnormal bleeding. MUSCULOSKELETAL: No musculoskeletal pain; no joint swelling. NEUROLOGICAL: Awake, alert, oriented to time, place and person. No headache. No neck pain. No syncope. No seizures. No dizziness. PSYCHIATRIC: Not anxious. No depression. No suicidal thoughts. No homicidal thoughts. SKIN: No rash. No lesions. No wounds. ENDOCRINE: No unexplained weight loss. No weight gain. HEMATOLOGIC/LYMPHATIC: No anemia. No purpura. No petechiae. No prolonged or excessive bleeding. No palpable lymph nodes. PHYSICAL EXAMINATION: GENERAL: The patient is awake, alert and oriented, sitting in bed in no distress. VITAL SIGNS: Temperature 97.9 F, Pulse 88, Respiratory Rate 18, BP 140/72, Pulse Ox 94% HEENT: Head normocephalic, atraumatic. Eyes: Extraocular muscles are intact. Pupils are equal, round and reactive to light and accommodation. Ears: No lesions. Nose appeared normal. Throat: No exudate or erythema. NECK: Supple. No JVD, no carotid bruit. No lymphadenopathy or thyromegaly. LUNGS: Clear to auscultation. Percussion note normal. Chest symmetrical. HEART: S1, S2, no S3. No murmurs. No cyanosis or clubbing. No ascites. Pulses: Dorsalis pedis and posterior tibial pulses +1 to +2 both sides. ABDOMEN: Soft. Non-tender. Bowel sounds active. No CVA tenderness. No mass felt. Right side little bruised right rib cage posterior. No crepitation on palpation. EXTREMITIES: No edema. Full range of motion of all extremities, equal. NEUROLOGIC: No focal deficit. Cranial nerves II through XII are grossly intact. No headache, no double vision or headache. SKIN: Warm and dry. Intact. Turgor-normal. LYMPHATIC: No palpable lymph nodes/no lymphedema. MUSCULOSKELETAL: Normal joints with no swelling. Muscle tone is normal. LAB REVIEW: 12/01/21 04:42 12/01/21 04:42 12/01/21 04:42: Sodium 137.9, Potassium 3.74, Chloride 102.3, Carbon Dioxide 31.7 H, Anion Gap 7.64, BUN 13.1, Creatinine 0.92, Estimated GFR (MDRD) 59.00, BUN/Creatinine Ratio 14.23, Glucose 170.3 H, Calcium 9.07, Total Bilirubin 0.30, AST 25.2, ALT 20.0, Alkaline Phosphatase 77.4, Total Protein 6.25 L, Albumin 3.27 L, Globulin 2.98, Albumin/Globulin Ratio 1.09 12/01/21 04:42: WBC 6.85, RBC 3.80 L, Hgb 10.2 L, Hct 31.0 L, MCV 81.6, MCH 26.8 L, MCHC 32.9, RDW Coeff of Alexander 15.9 H, Plt Count 216, Immature Gran % (Auto) 0.3, Neut % (Auto) 52.4, Lymph % (Auto) 31.8, [place] % (Auto) 5.5, Eos % (Auto) 9.1 H, Baso % (Auto) 0.9, Neut # (Auto) 3.6, Lymph # (Auto) 2.2, [place] # (Auto) 0.4, Eos # (Auto) 0.6, Baso # (Auto) 0.1, Immature Gran # (Auto) 0.0 ASSESSMENT: Please see below. 1. Rib fracture with pain 2. Mild bronchitis PLAN: 1. Decadron IM today 2. Pain medication as described. 3. Antibiotics as described Plan and coordination of the patient's care discussed in the presence of Sales Process Manager and nurse. EDUCATION: CONDITION: Stable SCRIBED BY: Torrey JOHNSON scribed while in presence of service performed by Dr. SUNI YAO on 12/01/21 ([id number])
[2021-12-01] MEDS: ZYLOPRIM PO SCH (09:25)
[2021-12-01] MEDS: CYMBALTA PO SCH (09:25)
[2021-12-01] MEDS: TYLENOL PO SCH ×2 (09:25→20:22)
[2021-12-01] MEDS: ATARAX PO SCH (09:26)
[2021-12-01] MEDS: ASPIRIN EC PO SCH (09:26)
[2021-12-01] MEDS: NEURONTIN PO SCH (09:26)
[2021-12-01] MEDS: VITAMIN D PO SCH (09:26)
[2021-12-01] MEDS: EFFEXOR XR PO SCH ×2 (09:26→20:21)
[2021-12-01] MEDS: ULTRAM PO SCH ×3 (09:26→20:22)
[2021-12-01] MEDS: NON-FORMULARY MEDICATION (Coenzyme Q10 [Coq-10] 100 mg Capsule) PO SCH (09:27)
[2021-12-01] MEDS: LACOSAMIDE 100 MG PO SCH ×2 (09:30→20:25)
[2021-12-01] MEDS: FLEXERIL PO SCH (20:19)
[2021-12-01] MEDS: DESYREL PO SCH (20:20)
[2021-12-01] MEDS: ZOCOR PO SCH (20:21)
[2021-12-01 21:03] VITALS: BP 129/71; TEMP 97.5
[2021-12-02] MEDS: KEFLEX PO SCH (05:35)
[2021-12-02] MEDS: PRILOSEC PO SCH (05:36)
--- NOTE | 2021-12-02 08:48 | PCM.PROG ---
Attending Provider: ATTENDING PROVIDER: Dr. SUNI YAO This patient is seen with Savannah Washington, Nurse Practitioner. DATE OF SERVICE: 12/02/21 SUBJECTIVE: This 76 year old /WHITE F was hospitalized 11/27/21. She has been eating well, drinking well. Sugar controlled. Episode of confusion likely due to change in environment. Ready for discharge home. REVIEW OF SYSTEMS: CONSTITUTIONAL: No night sweats. Fatigue. No fever or chills. HEENT: Eyes: No visual changes. No eye pain. No eye discharge. ENT: No runny nose. No epistaxis. No sinus pain. No odynophagia. No congestion. RESPIRATORY: No cough, no congestion. No hemoptysis. No shortness of breath. CARDIOVASCULAR: No angina symptoms. No CHF symptoms. No atypical chest pain for CAD. No palpitations. No orthopnea.. GASTROINTESTINAL: No abdominal pain. No nausea or vomiting. No diarrhea or constipation. No hematemesis. No hematochezia. GENITOURINARY: No urgency. No frequency. No dysuria. No hematuria. No obstruc tive symptoms. No discharge. No pain. No significant abnormal bleeding. MUSCULOSKELETAL: No musculoskeletal pain; no joint swelling. Right rib pain. NEUROLOGICAL: Awake, alert, oriented to time, place and person. No headache. No neck pain. No syncope. No seizures. No dizziness. PSYCHIATRIC: Not anxious. No depression. No suicidal thoughts. No homicidal thoughts. SKIN: No rash. No lesions. No wounds. ENDOCRINE: No unexplained weight loss. No weight gain. HEMATOLOGIC/LYMPHATIC: No anemia. No purpura. No petechiae. No prolonged or excessive bleeding. No palpable lymph nodes. PHYSICAL EXAMINATION: GENERAL: The patient is awake, alert and oriented, sitting in bed in no distress. VITAL SIGNS: Temperature 97.5 F, Pulse 90, Respiratory Rate 18, BP 129/71, Pulse Ox 93% HEENT: Head normocephalic, atraumatic. Eyes: Extraocular muscles are intact. Pupils are equal, round and reactive to light and accommodation. Ears: No lesions. Nose appeared normal. Throat: No exudate or erythema. NECK: Supple. No JVD, no carotid bruit. No lymphadenopathy or thyromegaly. LUNGS: Diminished breath sounds. Clear to auscultation. Percussion note normal. Chest symmetrical. HEART: S1, S2, no S3. No murmurs. No cyanosis or clubbing. No ascites. Pulses: Dorsalis pedis and posterior tibial pulses +1 to +2 both sides. ABDOMEN: Soft. Non-tender. Bowel sounds active. No CVA tenderness. No mass felt. EXTREMITIES: No edema. Full range of motion of all extremities, equal. NEUROLOGIC: No focal deficit. Cranial nerves II through XII are grossly intact. No headache. No double vision. SKIN: Not dry. Intact. Turgor-normal. LYMPHATIC: No palpable lymph nodes/no lymphedema. MUSCULOSKELETAL: Normal joints with no swelling. Muscle tone is normal. LAB REVIEW: 12/01/21 04:42 12/01/21 04:42 ASSESSMENT: Please see below. 1. Status post fall 2. Right rib fracture 3. UTI 4. Diabetes mellitus PLAN: 1. Discharge home 2. Keflex 500mg TID for 5 days 3. Tramadol 50mg BID PRN with 20 tablets 4. Followup next week. 5. Home Health referral for PT/OT Plan and coordination of the patient's care discussed in the presence of Examination Grader and nurse. SCRIBED BY: CLAUDIA COHEN Spout Liner scribed while in presence of service performed by Dr. Yao/Savannah Washington APRN on 12/02/21 ([id number])
[2021-12-02] MEDS: CYMBALTA PO SCH (09:23)
[2021-12-02] MEDS: TYLENOL PO SCH (09:24)
[2021-12-02] MEDS: ZYLOPRIM PO SCH (09:24)
[2021-12-02] MEDS: VITAMIN D PO SCH (09:24)
[2021-12-02] MEDS: ATARAX PO SCH (09:24)
[2021-12-02] MEDS: NEURONTIN PO SCH (09:24)
[2021-12-02] MEDS: EFFEXOR XR PO SCH (09:24)
[2021-12-02] MEDS: ASPIRIN EC PO SCH (09:24)
[2021-12-02] MEDS: ULTRAM PO SCH (09:24)
[2021-12-02] MEDS: LACOSAMIDE 100 MG PO SCH (09:25)
[2021-12-02] MEDS: NON-FORMULARY MEDICATION (Coenzyme Q10 [Coq-10] 100 mg Capsule) PO SCH (09:25)
--- NOTE | 2021-12-06 09:15 | PN ---
DATE OF SERVICE: 12/02/21 SUBJECTIVE: 76 year old white female was hospitalized with rib cage pain. The patient's condition has improved. Her rib pain is much less. She had a rib fracture. She was seen and examined with the Nurse Practitioner. The patient is going to be discharged home in stable condition. TIME SPENT: More than 30 minutes. Plan and coordination of the patient's care discussed in the presence of nurse. HERACLIO
--- NOTE | 2021-12-06 09:15 | PN ---
ADMISSION DAY: LEVEL 5 REST OF THEM: Intermediate FINAL DAY: D as in discharge MTDD
--- NOTE | 2021-12-13 14:13 | PN ---
DATE OF SERVICE: 11/28/21 SUBJECTIVE: 76 year old white female hospitalized with chest pain. The patient had fallen at 3am yesterday morning before her hospitalization. The patient had 6th rib right sided fracture with no pneumothorax also has possibility of UTI. REVIEW OF SYSTEMS: CONSTITUTIONAL: No night sweats. No fatigue, malaise, lethargy. No fever or chills. HEENT: Eyes: No visual changes. No eye pain. No eye discharge. ENT: No runny nose. No epistaxis. No sinus pain. No sore throat. No odynophagia. No congestion. RESPIRATORY: No cough, no congestion. No hemoptysis. No shortness of breath. CARDIOVASCULAR: No angina symptoms. No CHF symptoms. No atypical chest pain for CAD. No palpitations. No PND. No orthopnea. GASTROINTESTINAL: No abdominal pain. No nausea or vomiting. No diarrhea or constipation. No hematemesis. No hematochezia. GENITOURINARY: No urgency. No frequency. No dysuria. No hematuria. No obstructive symptoms. No discharge. No pain. No significant abnormal bleeding. MUSCULOSKELETAL: No musculoskeletal pain; no joint swelling. Right sided pleuritic type of pain from rib fracture. NEUROLOGICAL: No headache. No neck pain. No syncope. No seizures. No dizziness. PSYCHIATRIC: Not anxious. No depression. No suicidal thoughts. No homicidal thoughts. SKIN: No rash. No lesions. No wounds. ENDOCRINE: No unexplained weight loss. No weight gain. HEMATOLOGIC/LYMPHATIC: No anemia. No purpura. No petechiae. No prolonged or excessive bleeding. No palpable lymph nodes. PHYSICAL EXAMINATION: VITAL SIGNS: Temperature 98.2, pulse 100, respiratory rate 18, blood pressures 138/77 and pulse ox 88% on room air. HEENT: Head normocephalic, atraumatic. Eyes: Extraocular muscles are intact. Pupils are equal, round and reactive to light and accommodation. Ears: No lesions. Nose appeared normal. Throat: No exudate or erythema. NECK: Supple. No JVD, no carotid bruit. No lymphadenopathy or thyromegaly. LUNGS: Decreased breath sounds but clear to auscultation. Percussion note normal. Chest symmetrical. HEART: S1, S2, no S3. No murmurs. No cyanosis or clubbing. No ascites. Pulses: Dorsalis pedis and posterior tibial pulses +1 to +2 bilaterally. ABDOMEN: Soft. Nontender. Bowel sounds active. No CVA tenderness. No mass felt. Tenderness on the right side of rib cage noted laterally. EXTREMITIES: No edema. Full range of motion of all extremities, equal. NEUROLOGIC: No focal deficit. Cranial nerves II through XII are grossly intact. No headache. No double vision. SKIN: Not dry. Intact. Turgor - normal. LYMPHATIC: No palpable lymph nodes/no lymphedema. MUSCULOSKELETAL: Normal joints with no swelling. Muscle tone is normal. LABS: Hgb 10.4, hct 32, WBC 7,300 normal differential, creatinine 0.8, BUN 15, potassium 3.8 ASSESSMENT: 1. Right sided chest pain with rib fracture with fall 2. UTI 3. Dehydration 4. Hypoxemia likely from shallow breathing from pleuritic type of pain from rib fracture. PLAN: 1. Given IV Toradol 15mg one dose 2. Tramadol 50mg twice a day for pain two tablet 3. Tylenol twice a day for pain 4. Continue the rest of the medications as before. 5. Continue Rocephin 6. The patient is right risk for developing pneumonia from shielding the right side of the chest. 7. Continue IV fluids 8. The patient is encouraged to eat. 9. The patient's other comorbidities hypertension, dyslipdiemia, diabetes mellitus. TIME SPENT: More than 30 minutes. Plan and coordination of the patient's care discussed in the presence of nurse. HERACLIO
--- NOTE | 2021-12-13 14:27 | PN ---
DATE OF SERVICE: 11/29/21 SUBJECTIVE: 76 year old white female hospitalized with chest pain. She fell out of bed and fractured the right 6th rib. Localized tenderness noted. REVIEW OF SYSTEMS: CONSTITUTIONAL: No night sweats. No malaise, lethargy. No fever or chills. Weakness and fatigue. HEENT: Eyes: No visual changes. No eye pain. No eye discharge. ENT: No runny nose. No epistaxis. No sinus pain. No sore throat. No odynophagia. No congestion. RESPIRATORY: No cough, no congestion. No hemoptysis. No shortness of breath. CARDIOVASCULAR: No angina symptoms. No CHF symptoms. No atypical chest pain for CAD. No palpitations. No PND. No orthopnea. Right sided chest pain, localized more on deep inspiration. GASTROINTESTINAL: No abdominal pain. No nausea or vomiting. No diarrhea or constipation. No hematemesis. No hematochezia. GENITOURINARY: No urgency. No frequency. No dysuria. No hematuria. No obstructive symptoms. No discharge. No pain. No significant abnormal bleeding. MUSCULOSKELETAL: No musculoskeletal pain; no joint swelling. NEUROLOGICAL: No headache. No neck pain. No syncope. No seizures. No dizziness. PSYCHIATRIC: Not anxious. No depression. No suicidal thoughts. No homicidal thoughts. SKIN: No rash. No lesions. No wounds. ENDOCRINE: No unexplained weight loss. No weight gain. HEMATOLOGIC/LYMPHATIC: No anemia. No purpura. No petechiae. No prolonged or excessive bleeding. No palpable lymph nodes. PHYSICAL EXAMINATION: VITAL SIGNS: Temperature 97.8, pulse 93, respiratory rate 20, blood pressure 130/76 and pulse ox 93% on room air. HEENT: Head normocephalic, atraumatic. Eyes: Extraocular muscles are intact. Pupils are equal, round and reactive to light and accommodation. Ears: No lesions. Nose appeared normal. Throat: No exudate or erythema. NECK: Supple. No JVD, no carotid bruit. No lymphadenopathy or thyromegaly. LUNGS: Clear to auscultation. Percussion note normal. Chest symmetrical. Decreased breath sounds mainly on the right side with tenderness on the right thoracic area anterior and axillary area. HEART: S1, S2, no S3. No murmurs. No cyanosis or clubbing. No ascites. Pulses: Dorsalis pedis and posterior tibial pulses +1 to +2 bilaterally. ABDOMEN: Soft. Nontender. Bowel sounds active. No CVA tenderness. No mass felt. EXTREMITIES: No edema. Full range of motion of all extremities, equal. NEUROLOGIC: No focal deficit. Cranial nerves II through XII are grossly intact. No headache. No double vision. SKIN: Not dry. Intact. Turgor - normal. LYMPHATIC: No palpable lymph nodes/no lymphedema. MUSCULOSKELETAL: Normal joints with no swelling. Muscle tone is normal. LABS: hgb 9.7, hct 30, WBC 7,000 normal differential, creatinine 0.9, BUN 14, potassium 3.7 ASSESSMENT: 1. Right sided chest pain likely from fracture of the rib 2. Respiratory failure on admission because of shielding of right side of the chest with pO2 of 60. PLAN: 1. Continue antibiotics 2. Will discontinue Rocephin 3. Put her on Keflex 500mg TID 4. The patient had maybe mild bronchitis type of symptoms. 5. Toradol 15mg IV Q 8 hours 6. Advised to do spirometry TIME SPENT: More than 30 minutes. Plan and coordination of the patient's care discussed in the presence of nurse. HERACLIO
--- NOTE | 2022-01-21 12:38 | HP ---
DATE OF SERVICE: 11/27/21 REASON FOR HOSPITALIZATION/HISTORY OF PRESENT ILLNESS: 76 year old white female was presented to the emergency room complaining of right chest wall pain. She had fallen and hit her right side about three days ago. PAST MEDICAL HISTORY: Diabetes mellitus type II History of seizure disorder Obesity Metabolic syndrome Noncompliant with diet, lifestyle and medications Chronic anemia Depression Anxiety Peripheral neuropathy Chronic dizziness Dyslipdiemia Hypertension Insomnia Metabolic syndrome GERD PAST SURGICAL HISTORY: No known past surgical history. REVIEW OF SYSTEMS: CONSTITUTIONAL: No night sweats. No fatigue, malaise, lethargy. No fever or chills. HEENT: Eyes: No visual changes. No eye pain. No eye discharge. ENT: No runny nose. No epistaxis. No sinus pain. No sore throat. No odynophagia. No ear pain. No congestion. RESPIRATORY: No cough, no congestion. No hemoptysis. No shortness of breath. CARDIOVASCULAR: No angina symptoms. No CHF symptoms. No atypical chest pain for CAD. No palpitations. No PND. No orthopnea. Right chest wall pain. GASTROINTESTINAL: No abdominal pain. No nausea or vomiting. No diarrhea or constipation. No hematemesis. No hematochezia. GENITOURINARY: No urgency. No frequency. No dysuria. No hematuria. No obstructive symptoms. No discharge. No pain. No significant abnormal bleeding. MUSCULOSKELETAL: No musculoskeletal pain. No joint swelling. No arthritis. NEUROLOGICAL: No headache. No neck pain. No syncope. No seizures. No dizziness. PSYCHIATRIC: Anxious. No depression. No suicidal thoughts. No homicidal thoughts. SKIN: No rash. No lesions. No wounds. ENDOCRINE: No unexplained weight loss. No weight gain. HEMATOLOGIC/LYMPHATIC: No anemia. No purpura. No petechiae. No prolonged or excessive bleeding. No palpable lymph nodes. PERSONAL/FAMILY/SOCIAL HISTORY: She is nonsmoker. No alcohol or illicit drug use. She lives at home. Her daughter is present with her. Multiple grandchildren. MEDICATIONS: Imodium 2mg PO Q 2-4 hours Coenzyme 200mg PO daily Trazodone 100mg PO bedtime Venlafaxine 75mg PO daily Alprazolam 0.5mg PO BID PRN Allopurinol 300mg PO daily Simvastatin 40mg PO bedtime Venlafaxine 37.5mg PO Bedtime Omeprazole 20mg PO daily Duloxetine 60mg PO daily Gabapentin 200mg PO daily Hydroxyzine 25mg PO daily Midodrine 2.5mg PO TID Vitamin D3 25mcg PO daily Aspirin 81mg PO daily Zyrtec 10mg PO daily PRN Rybelsus 7mg PO daily Cyclobenzaprine 5mg PO bedtime Lacosamide 100mg PO BID Meclizine 25mg PO daily PRN ALLERGIES: Latex Penicillin Sulfa PHYSICAL EXAMINATION: GENERAL: The patient is alert and oriented. HEENT: Head normocephalic, atraumatic. Eyes: Extraocular muscles are intact. Pupils are equal, round and reactive to light and accommodation. Ears: No lesions. Nose appeared normal. Throat: No exudate or erythema. NECK: Supple. No JVD, no carotid bruit. No lymphadenopathy or thyromegaly. LUNGS: Diminished breath sounds. Clear to auscultation. Percussion note normal. Chest symmetrical. HEART: S1, S2, no S3. No murmur. No cyanosis or clubbing. No ascites. Pulses: Dorsalis pedis and posterior tibial pulses +1 to +2 bilaterally. ABDOMEN: Soft. Nontender. Bowel sounds active. No CVA tenderness. No mass felt. Right chest wall tenderness. EXTREMITIES: No edema. Full range of motion of all extremities, equal. NEUROLOGIC: No focal deficit. Cranial nerves II through XII are grossly intact. No headache, no double vision or headache. SKIN: Not dry. Intact. Turgor - normal. LYMPHATIC: No palpable lymph nodes/no lymphedema. MUSCULOSKELETAL: Normal joints with no swelling. Muscle tone is normal. LABS: WBC 7.3, hgb 10.4, hct 32.4, plt count 212, sodium 138, potassium 3.6, BUN 13, creatinine 0.88, glucose 175. Troponin less than 0.012, total CK 44, ABG on room air pH 7.46, O2 saturation 92, pO2 60, pCO2 45. Urine shows +[address] of the abdomen shows fracture of the right 6th lateral rib, no acute abdominal findings, possible liver cirrhosis. Mild splenomegaly. CT of the C spine shows no acute findings. CT of the chest shows no acute findings, stable left lower lobe pulmonary nodules. CT of the brain shows no acute intracranial hemorrhage, 1.8cm lucent lesion on the left parietal this has been noted before. She sees neurology, it is benign. X-ray of the knees are negative as well as the foot. ASSESSMENT: 1. Acute chest wall pain 2. Right 6th rid fracture 3. UTI 4. Hypertension 5. Diabetes mellitus type II 6. Obesity 7. Noncompliance PLAN: 1. We will admit 2. Routine telemetry orders 3. CBC and CMP daily 4. Start Rocephin 1 gram IV daily for possible UTi 5. Urine culture 6. Regular diet 7. Continue home medications 8. 1cc Decadron IM times 1 9. 2D echo 10. Will follow closely 11. Will monitor Accu-checks QID Diabetes mellitus type II TIME SPENT: More than 70 minutes. MTDD
--- NOTE | 2022-01-21 13:23 | DS ---
DATE OF SERVICE: 12/02/21 FINAL DIAGNOSIS: 1. Status post fall 2. Right sided chest pain with 6th lateral rib fracture 3. Acute respiratory failure on admission related to guarding from 6th lateral rib fracture 4. Uncontrolled Diabetes Mellitus type II 5. Noncompliance 6. Obesity 7. Hypertension DISCHARGE INSTRUCTIONS: Discharge home today 12/02/21. Continue medications as listed per nursing reconciliation. Followup appointment with Dr. Lovell/Savannah Washington NP/Adam Franco NP on MondayDecember 10 at 10:15am. Referral for PT/OT placed to [facility]. They will reach out to set up in the home. MEDICATIONS AT DISCHARGE: Imodium 2mg PO Q 2-4 hours Coenzyme 200mg PO daily Trazodone 100mg PO bedtime Venlafaxine 75mg PO daily Alprazolam 0.5mg PO BID PRN Allopurinol 300mg PO daily Simvastatin 40mg PO bedtime Venlafaxine 37.5mg PO Bedtime Omeprazole 20mg PO daily Duloxetine 60mg PO daily Gabapentin 200mg PO daily Hydroxyzine 25mg PO daily Midodrine 2.5mg PO TID Vitamin D3 25mcg PO daily Aspirin 81mg PO daily Zyrtec 10mg PO daily PRN Rybelsus 7mg PO daily Cyclobenzaprine 5mg PO bedtime Lacosamide 100mg PO BID Meclizine 25mg PO daily PRN NEW PRESCRIPTIONS: KEFLEX 500MG BY MOUTH THREE TIMES A DAY FOR 5 DAYS THEN STOP (THIS IS YOUR ANTIBIOTIC) TRAMADOL 50MG BY MOUTH TWICE A DAY NEEDED FOR PAIN DIET INSTRUCTIONS: Resume regular diet at home ACTIVITY: Gradually resume activity as tolerated HOSPITAL COURSE: 76 year old white female who fell out of bed a few days prior to coming to the emergency room complaining of right sided chest pain. She was found to be in acute respiratory failure with pO2 63 likely due to guarding on the right side because of chest pain. She was found to have a fracture of the 6th lateral rib which was the only acute fracture. Urine was abnormal. She was initiated on IV Rocephin for possible UTI. She also had some cough likely due to the lack of deep breathing however chest x-ray was normal and showed no acute process. CT of the brain did show that she had a lucent lesion on the left parietal which she see neuro for so this is not new. She will be discharged home on Keflex 500mg TID for 7 days along with Prednisone 10mg PO BID. Pain has been controlled with Tramadol and [place] she has received Toradol IV. Sugars have been elevated. She does have a long history of noncompliance. Urine culture ended up being normal. Blood cultures were negative. She will be sent home medications unchanged. We will followup with her in the office. TIME SPENT: More than 60 minutes. MTDD
== END 2021-12-02 10:07 | disposition home or self-care (01) ==
LOC: ED 16:36 → INTOOBSV 22:23 → MEDSURG A 22:23
PROVIDERS: ADMIT Internal Medicine; ATTEND Internal Medicine
DX: N39.0 Urinary tract infection, site not specified; E11.65 Type 2 diabetes mellitus with hyperglycemia; R07.89 Other chest pain; J96.01 Acute respiratory failure with hypoxia; Z91.19 Patient's noncompliance with other medical treatment and regimen; Y92.89 Other specified places as the place of occurrence of the external cause; W19.XXXA Unspecified fall, initial encounter; E66.9 Obesity, unspecified; Y93.9 Activity, unspecified; R07.81 Pleurodynia; Z20.822 Contact with and (suspected) exposure to COVID-19; I10 Essential (primary) hypertension; Y99.9 Unspecified external cause status; J40 Bronchitis, not specified as acute or chronic; S22.31XA Fracture of one rib, right side, initial encounter for closed fracture

== ENCOUNTER 2024-01-05 09:21 | Inpatient (IN) ==
--- NOTE | 2024-01-05 09:31 | ED.PDOC ---
General ED Provider: Dr. EDIE GAVIRIA MD Chief Complaint: Chest Pain Stated Complaint: Patient with a history of type 2 diabetes, peripheral neuropathy, complains of upper sternal chest pain since last night pain score 8/10 states the pain has been constant associated occasional dyspnea denies diaphoresis palpitations. Patient also complains of having slight cough. Denies fever, chills, arthralgia. Time Seen by Provider: 01/05/24 09:23 Mode of Arrival: Walk-In Information Source: Patient Exam Limitations: Clinical condition Primary Care Provider: SUNI YAO MD Nursing and Triage Documentation Reviewed and Agree: Yes What is Opioid Naive?: *Opioid Naive implies the patient is not already taking opioids or not chronically receiving opioids on a daily basis. *PRN dosing is not "usually" associated with tolerance. *Patients are at higher risk of over-sedation and aspiration. What is Opioid Tolerant?: *Opioid Tolerance implies less than the expected response to an opioid. *Acquired tolerance is defined by the patient taking 60mg of oral morphine daily (or equianalgesic dose of another opioid) for 1 week or more. *Often associated with chronic pain. *May take more than usual dose to achieve desired pain control. Review of Systems Review Of Systems Constitutional: Reports No symptoms Eyes: Reports No symptoms Ears, Nose, Mouth, Throat: Reports No symptoms Cardiac: Reports Chest pain GI: Reports No symptoms : Reports No symptoms Musculoskeletal: Reports No symptoms Endocrine: Reports No symptoms Hematologic/Lymphatic: Reports No symptoms All Other Systems: Reviewed and Negative [facility] Medical History UTI (urinary tract infection) N39.0 - Urinary tract infection, site not specified (ICD-10) Acute kidney injury N17.9 - Acute kidney failure, unspecified (ICD-10) Seizure R56.9 - Unspecified convulsions (ICD-10) Diabetes E11.9 - Type 2 diabetes mellitus without complications (ICD-10) Social History Smoking and tobacco status: Never smoker Alcohol intake: never Substance use type: does not use Special oli needs: No Agree to transfusion: Yes Adopted: No Caregiver/support person: No Foster care: No Household members: children Housing: house Marital status: S SINGLE Lives independently: Yes Daycare: no daycare Number of children: 4 service: No skilled nursing: No History of recent travel: No Do you think of yourself as: straight/heterosexual Current gender identity: female Seatbelt use: always Drives intoxicated or rides with intoxicated automation driver: No Water heater temperature set < 120 degrees: Yes Working smoke detector in home: Yes Fire extinguisher in home: Yes Carbon monoxide detector in home: Yes Female Reproductive History Menstrual Hx Hysterectomy: No Hx Tubal Ligation: No Physical Exam Physical Exam Appearance: Reports Ill-appearing Ill-appearing: Mild Pain Distress: Mild Eyes: Reports PARAM ENT: Reports Ears normal, Nose normal and Oropharynx normal Neck: Supple Respiratory: Reports Airway patent, Breath sounds clear and Crackles Cardiovascular: Reports RRR, Pulses normal and No murmur GI/: Reports Soft, Nontender, No masses and Bowel sounds normal Musculoskeletal: Reports Normal strength and No edema Skin: Reports Warm, Dry and Normal color Neurological: Reports Sensation intact, Motor intact and Reflexes intact Psychiatric: Reports Affect appropriate and Mood appropriate Physician Notification Case Discussed Physician Notified: Consulted on-call vegetable buncher [facility] Dr. Rhoades Time of Notification: 12:30 Comments: History given for chest pain for 24 hours with 2 negative sets of troponin enzymes. After having the EKGs reviewed by the vegetable buncher there is no acute findings noted. Course Course 01/05/24 09:54 01/05/24 09:54 Orders, Labs, Meds: Lab Review 01/05/24 01/05/24 01/05/24 09:54 10:51 11:58 WBC 13.18 H RBC 4.61 Hgb 13.5 Hct 40.6 MCV 88.1 MCH 29.3 MCHC 33.3 RDW Coeff of Alexander 13.9 Plt Count 226 Immature Gran % (Auto) 0.3 Neut % (Auto) 70.3 Lymph % (Auto) 18.8 [place] % (Auto) 6.5 Eos % (Auto) 3.5 Baso % (Auto) 0.6 Neut # (Auto) 9.3 H Lymph # (Auto) 2.5 [place] # (Auto) 0.9 Eos # (Auto) 0.5 Baso # (Auto) 0.1 Immature Gran # (Auto) 0.0 PT 10.0 INR 0.96 APTT 25.4 Puncture Site Lbrach Base Excess 4.0 H O2 Saturation 93.5 L ABG pH 7.47 H ABG pCO2 38.0 ABG pO2 64.0 L ABG HCO3 27.7 ABG Total CO2 28.9 H Colby Test N/a Hemoglobin 1.0 Oxyhemoglobin 91.5 L Carboxyhemoglobin 1.2 Total Hemoglobin 13.8 O2 Delivery Device Cannula Oxygen Liter Flow 2.00 Sodium 134.1 L Potassium 4.05 Chloride 97.6 L Carbon Dioxide 30.2 H Anion Gap 10.35 BUN 14.4 Creatinine 0.77 Estimated GFR (MDRD) 73.00 BUN/Creatinine Ratio 18.70 Glucose 238.1 H Calcium 9.74 Magnesium 1.19 L Total Bilirubin 0.65 AST 49.3 H ALT 31.8 Alkaline Phosphatase 77.1 Troponin I < 0.012 < 0.012 NT-Pro-B Natriuret Pep 444 H Total Protein 7.52 Albumin 4.67 Globulin 2.85 Albumin/Globulin Ratio 1.63 D-Dimer 1077.45 H Orders Category Date Time Status ABG DRAW REQUEST Stat CARDIO 01/05/24 10:45 Completed EKG-(ED ONLY) Stat CARDIO 01/05/24 09:33 Completed EKG-(ED ONLY) Stat CARDIO 01/05/24 12:11 Completed NEBULIZER TREATMENT Stat CARDIO 01/05/24 10:36 Completed NPO REMINDER: IMAGING ONCE CARE 01/05/24 10:49 Active Waiter/Waitress Head [ED DERMATOLOGIST MANAGING PARTNER APPLIED] .ONCE EMERGENCY 01/05/24 09:33 Active OXYGEN [ED APPLY O2] .ONCE EMERGENCY 01/05/24 09:42 Active ABG COOX Stat LAB 01/05/24 10:51 Completed CBC W/ AUTO DIFF Stat LAB 01/05/24 09:54 Completed CMP [COMPREHENSIVE METABOLIC PANEL] Stat LAB 01/05/24 09:54 Completed COVID [SARS COV-2 RNA RAPID SABINA] Stat LAB 01/05/24 Uncollected D-DIMER Stat LAB 01/05/24 09:54 Completed INR [PT WITH INR] Stat LAB 01/05/24 09:54 Completed MAGNESIUM Stat LAB 01/05/24 09:54 Completed NT-PROBNP(ED) Stat LAB 01/05/24 09:54 Completed PARTIAL THROMBOPLASTIN TIME Stat LAB 01/05/24 09:54 Completed TROPONIN I Stat LAB 01/05/24 09:54 Completed TROPONIN I Stat LAB 01/05/24 11:58 Completed Aspirin [Aspirin Chewable] Meds 01/05/24 09:43 Discontinued 243 mg PO ONCE STA Ipratropium/Albuterol Neb [Duoneb] Meds 01/05/24 10:36 Discontinued 3 ml NEB ONCE STA Metoprolol Tartrate [Lopressor] Meds 01/05/24 09:33 Discontinued 2.5 mg IVP ONCE STA Morphine Sulfate [Morphine 2 mg/ml Syringe] Meds 01/05/24 11:47 Discontinued 2 mg IVP ONCE ONE Nitroglycerin [Nitrostat] Meds 01/05/24 09:32 Active 0.4 mg SL Q5MIN X 3 DOSES PRN Ondansetron HCl/Pf [Zofran 4 mg/2 ml] Meds 01/05/24 11:47 Discontinued 4 mg IVP ONCE STA Sodium Chloride 0.9% [Sodium Chloride] 1,000 ml Meds 01/05/24 09:32 Active IV 30 mls/hr CHEST, 1V AP ONLY Stat RADS 01/05/24 09:32 Completed CTA CHEST PE PROTOCOL Stat RADS 01/05/24 10:48 Completed Medications Generic Name Dose Route Start Last Admin Trade Name Freq PRN Reason Stop Dose Admin Sodium Chloride 1,000 mls @ 30 mls/hr 01/05/24 09:32 Sodium Chloride IV 01/06/24 18:51 .[id number] ONE Nitroglycerin 0.4 mg 01/05/24 09:32 01/05/24 10:55 Nitroglycerin 0.4 Mg Tab.Subl SL 0.4 mg Q5MIN X 3 DOSES PRN Administration Chest Pain Discontinued Medications Generic Name Dose Route Start Last Admin Trade Name Freq PRN Reason Stop Dose Admin Albuterol/Ipratropium 3 ml 01/05/24 10:36 01/05/24 11:02 Ipratropium/Albuterol Vial.Neb NEB 01/05/24 10:37 3 ml ONCE STA Administration Aspirin 243 mg 01/05/24 09:43 01/05/24 09:51 Aspirin 81 Mg Tab.Chew PO 01/05/24 09:44 243 mg ONCE STA Administration Metoprolol Tartrate 2.5 mg 01/05/24 09:33 01/05/24 09:50 Metoprolol Tartrate 5 Mg/5 Ml Vial IVP 01/05/24 09:34 2.5 mg ONCE STA Administration Morphine Sulfate 2 mg 01/05/24 11:47 01/05/24 12:06 Morphine Sulfate 2 Mg/Ml Syringe IVP 01/05/24 11:48 2 mg ONCE ONE Administration Ondansetron HCl 4 mg 01/05/24 11:47 01/05/24 12:05 Ondansetron Hcl/Pf 4 Mg/2 Ml Sdv IVP 01/05/24 11:48 4 mg ONCE STA Administration Vital Signs: Temp Pulse Resp BP Pulse Ox O2 Flow Rate 01/05/24 09:40 2 01/05/24 09:39 98 F 109 H 15 144/88 H 91 L DILIA Risk Score Age >/= 65: Yes >/= 3 CAD Risk Factors: No Known CAD (Stenosis >/= 50%): No ASA Use in Past 7 Days: Yes Severe Angina (>/= 2 episodes in 24 hours): Yes EKG ST Changes >/= 0.5mm: No Postive Cardiac Marker: No DILIA Total Score: 3 DILIA Risk Score: Risk Score Odds of by 30D 0 0.1 (0.1-0.2) 1 0.3 (0.2-0.3) 2 0.4 (0.3-0.5) 3 0.7 (0.6-0.9) 4 1.2 (1.0-1.5) 5 2.2 (1.9-2.6) 6 3.0 (2.5-3.6) 7 4.8 (3.8-6.1) Physician Progress Note: History obtained from patient and patient's daughter with history of chronic kidney disease, type 2 diabetes, complains having substernal chest pain discomfort since last night upper sternum pain scale sharp squeezing pain 8/10 associated dyspnea slight cough denies fever, diaphoresis, palpitations. Denies fever, chills, arthralgia. 09-EKG interpretation by myself consistent sinus tachycardia rate 113 left axis deviation there is LVH there is no ectopy noted. There is no prolongation of NM QT interval. Patient given baby aspirin 323 mg orally Nitroglycerin sublingual x 1 and Lopressor 2.5 mg IV for the sinus tachycardia. Portable chest x-ray interpretation radiologist consistent with hypoventilation there is no pulmonary infiltrates, pleural effusion, pneumothorax. There is stable and borderline cardiomegaly. Laboratory data reviewed CBC and the CMP are within normal limit except for white blood count 13,000. Glucose 238, D-dimer 1077, troponin 0.012, BNP of 444, The CTA chest PE protocol of IV contrast interpretation by the radiologist shows no evidence of pulm embolism stable left lower lobe pulmonary nodules measuring up to 1.5 cm. There is bibasilar hypoventilation changes no acute airspace disease. 0925-troponin 0.012 1158 troponin 0.012 Differential diagnosis: 1) DDX for chest pain Discussed with hospitalist Yasmine Sauceda at 1340 for observation Discharge Plan Discharge Patient Disposition: PLACED OBSERVATION Discharge Problem: Acute chest pain Prescriptions: No Action cetirizine [Zyrtec] 10 mg tablet 10 mg PO DAILY PRN (Reason: Allergic Symptoms) Qty: 90 1RF (DME) Accu-Chek Guide test strips Strip See Rx Instructions .ROUTE Qty: 100 5RF Rx Instructions: As directed DM2 E11.9 TEST TWO TIMES DAILY memantine 5 mg tablet See Rx Instructions .ROUTE .COMPLEX Qty: 180 1RF Dose Instruction: TAKE ONE TABLET BY MOUTH TWICE DAILY Rx Instructions: TAKE ONE TABLET BY MOUTH TWICE DAILY (DME) blood glucose control, low Solution See Rx Instructions .ROUTE Qty: 1 2RF Rx Instructions: As directed DM2 E11.9 TEST TWO TIMES DAILY (DME) blood-glucose meter [Accu-Chek Guide Glucose Meter] Misc See Rx Instructions .ROUTE Qty: 1 0RF Rx Instructions: As directed DM2 E11.9 TEST TWO TIMES DAILY (DME) lancets [Accu-Chek Softclix Lancets] Misc See Rx Instructions .ROUTE Qty: 200 2RF Rx Instructions: As directed DM2 E11.9 TEST TWO TIMES DAILY omeprazole 20 mg capsule,delayed release(DR/EC) See Rx Instructions .ROUTE .COMPLEX Qty: 180 1RF Dose Instruction: TAKE 1 CAPSULE TWICE DAILY Rx Instructions: TAKE 1 CAPSULE TWICE DAILY venlafaxine 75 mg capsule,extended release 24hr See Rx Instructions .ROUTE .COMPLEX Qty: 90 1RF Dose Instruction: TAKE 1 CAPSULE EVERY DAY Rx Instructions: TAKE 1 CAPSULE EVERY DAY duloxetine 60 mg capsule,delayed release(DR/EC) See Rx Instructions .ROUTE .COMPLEX Qty: 90 3RF Dose Instruction: TAKE 1 CAPSULE EVERY DAY Rx Instructions: TAKE 1 CAPSULE EVERY DAY cyclobenzaprine 5 mg tablet See Rx Instructions .ROUTE .COMPLEX Qty: 90 3RF Dose Instruction: TAKE 1 TABLET EVERY DAY Rx Instructions: TAKE 1 TABLET EVERY DAY Rybelsus 14 mg tablet See Rx Instructions .ROUTE .COMPLEX Qty: 90 3RF Dose Instruction: TAKE 1 TABLET EVERY DAY Rx Instructions: TAKE 1 TABLET EVERY DAY metformin 500 mg tablet 500 mg PO BID Qty: 180 3RF venlafaxine 37.5 mg capsule,extended release 24hr See Rx Instructions .ROUTE .COMPLEX Qty: 90 1RF Dose Instruction: TAKE 1 CAPSULE AT BEDTIME Rx Instructions: TAKE 1 CAPSULE AT BEDTIME hydroxyzine pamoate 25 mg capsule 25 mg PO .daily Qty: 90 1RF gabapentin 100 mg capsule See Rx Instructions .ROUTE .COMPLEX Qty: 180 3RF Dose Instruction: TAKE 2 CAPSULES EVERY DAY Rx Instructions: TAKE 2 CAPSULES EVERY DAY lacosamide 100 mg tablet 100 mg PO BID Qty: 60 2RF allopurinol 300 mg tablet See Rx Instructions .ROUTE .COMPLEX Qty: 90 3RF Dose Instruction: TAKE 1 TABLET EVERY DAY Rx Instructions: TAKE 1 TABLET EVERY DAY simvastatin 40 mg tablet See Rx Instructions .ROUTE .COMPLEX Qty: 90 3RF Dose Instruction: TAKE 1 TABLET EVERY DAY Rx Instructions: TAKE 1 TABLET EVERY DAY trazodone 100 mg tablet See Rx Instructions .ROUTE .COMPLEX Qty: 90 3RF Dose Instruction: TAKE 1 TABLET AT BEDTIME Rx Instructions: TAKE 1 TABLET AT BEDTIME aspirin 81 mg Tablet,Delayed Release (Dr/Ec) 81 mg PO DAILY meclizine 25 mg tablet,chewable 25 mg PO DAILY PRN (Reason: Dizziness) Patient Comments: TAKE ONE TABLET BY MOUTH THREE TIMES DAILY NEEDED FOR dizziness. DO not take with vistaril OR xanax alprazolam 0.5 mg Tablet 0.5 mg PO BID PRN (Reason: Anxiety) coenzyme Q10 [CoQ-10] 100 mg Capsule 200 mg PO DAILY clopidogrel 75 mg tablet 75 mg PO QDAY [id number]-[id number]-zypy 50-325-40 mg capsule 1 cap PO Q6H PRN (Reason: pain) ferrous sulfate [FeroSul] 325 mg (65 mg iron) tablet 325 mg PO Q OTHER DAY Did you review [place] VAULT WORKER for ALL controlled substances?: Not Applicable ED Provider: EDIE GAVIRIA Condition: Stable
[2024-01-05] MEDS ORDERED: ASPIRIN CHEWABLE PO STA (09:32)
[2024-01-05] MEDS: LOPRESSOR IVP STA (09:50)
[2024-01-05] MEDS: ASPIRIN CHEWABLE PO STA (09:51)
[2024-01-05 10:00] LABS: BASOPHILS # (AUTO) 0.1 K/uL (0-0.2); BASOPHILS % (AUTO) 0.6 % (0.0-3.0); EOSINOPHILS # (AUTO) 0.5 K/ul (0.0-0.7); EOSINOPHILS % (AUTO) 3.5 % (0.0-7.0); HEMATOCRIT 40.6 % (37.0-47.0); HEMOGLOBIN 13.5 g/dl (12.0-16.0); IMMATURE GRANULOCYTE % (AUTO) 0.3 % (0.0-5.0); LYMPHOCYTES # (AUTO) 2.5 K/uL (0.60-3.4); LYMPHOCYTES % (AUTO) 18.8 (10.0-50.0); MEAN CORPUSCULAR HEMOGLOBIN 29.3 pg (27.0-31.0); MEAN CORPUSCULAR HGB CONC 33.3 (31.8-35.4); MEAN CORPUSCULAR VOLUME 88.1 fl (81.0-99.0); MONOCYTES # (AUTO) 0.9 K/uL (0.4-2.0); MONOCYTES % (AUTO) 6.5 (0-10); NEUTROPHILS # (AUTO) 9.3 K/ul (2.0-6.9); NEUTROPHILS % (AUTO) 70.3 % (42.2-75.2); PLATELET COUNT 226 10^3/uL (140-440); RDW COEFFICIENT OF VARIATION 13.9 % (11.6-14.8); RED BLOOD COUNT 4.61 10^6/ul (4.20-5.40); WHITE BLOOD COUNT 13.18 K/ul (4.6-10.2)
[2024-01-05 10:14] LABS: PARTIAL THROMBOPLASTIN TIME 25.4 SEC (23.9-40.0)
[2024-01-05] MEDS: NITROSTAT SL PRN (10:18)
[2024-01-05 10:21] LABS: ALANINE AMINOTRANSFERASE 31.8 U/L (0-35); ALBUMIN 4.67 g/dL (3.5-5.0); ALKALINE PHOSPHATASE 77.1 U/L (53-141); ASPARTATE AMINO TRANSFERASE 49.3 U/L (14-36); BILIRUBIN,TOTAL 0.65 mg/dL (0.2-1.3); BLOOD UREA NITROGEN 14.4 mg/dL (7-17); CALCIUM 9.74 mg/dL (8.4-10.2); CARBON DIOXIDE 30.2 mmol/L (22-30.0); CHLORIDE 97.6 mmol/L (98-107); CREATININE 0.77 mg/dL (0.60-1.30); GLUCOSE 238.1 mg/dL (74-106); POTASSIUM 4.05 mmol/L (3.5-5.1); SODIUM 134.1 mmol/L (134.5-145); TOTAL PROTEIN 7.52 g/dL (6.3-8.2)
[2024-01-05 10:32] LABS: TROPONIN I < 0.012 ng/ml (0.0000-0.120)
--- NOTE | 2024-01-05 10:39 | DI ---
EXAM: CHEST RADIOGRAPH TECHNIQUE: Single frontal chest radiograph. HISTORY: Shortness of breath. COMPARISON: 16 and 2023 and older studies. FINDINGS: The patient is mildly leaning to the left. Hypoventilation. Oxygen tubing projects over the patient 's chest. No pulmonary infiltrate is identified. No pleural effusion or pneumothorax is seen. Stable borderline cardiomegaly. No acute displaced rib fractures are identified. IMPRESSION: 1. No acute findings in the chest.
[2024-01-05] MEDS: DUONEB NEB STA (11:02)
[2024-01-05 11:09] LABS: ABG O2 HGB 91.5 % (95-100); ABG PH 7.47 (7.35-7.45); COHb 1.2 (0.5-1.5); HCO3 27.7 (21-28); TCO2 28.9 (19-24); sO2 93.5 % (94-98); tHb 13.8 g/dl (11.7-17.4)
[2024-01-05] MEDS: ZOFRAN 4 MG/2 ML IVP STA (12:05)
[2024-01-05] MEDS: MORPHINE 2 MG/ML SYRINGE IVP ONE (12:06)
--- NOTE | 2024-01-05 12:08 | CT ---
EXAM: CTA CHEST FOR PE HISTORY: Dyspnea. Elevated D-dimer. COMPARISON: Same day chest radiograph TECHNIQUE: CTA of the chest was performed from the lung apices to the upper abdomen after 75 ml of O mnipaque IV contrast was administered using PE protocol. 3-D imaging was also provided. FINDINGS: There is no filling defect in the pulmonary arteries to the level of the subsegmental pulm onary arteries. The heart is normal without signs of ventricular strain. No pericardial effusion. Normal caliber of the main pulmonary artery. Stable pulmonary nodules in the left lower lobe measuring 15 and 8 mm respectively. There is interna l hyperdensity as seen on prior CTs. Hypoventilatory changes at the bilateral lung bases. Stable 13 mm left hilar lymph node with internal hyperdensity, possible calcification. No new or enlarging mediastinal or hilar lymph nodes. Normal caliber of the thoracic aorta. Scattered atherosclerotic calcifications. Age indeterminate mild compression deformity of the T12 vertebral body is new since most recent CT but has an overall chronic appearance. IMPRESSION: 1. No evidence of pulmonary embolism. 2. Stable left lower lobe pulmonary nodules measuring up to 15 mm. Multi-year stability is reassurin g of benignity. Internal hyperdensity suggests hamartomas or granulomas. 3. Bibasilar hypoventilatory changes. No acute air space disease. 4. Technically age indeterminate compression deformity of the T12 vertebral body. This has an overal l chronic appearance but is new compared to most recent to [address] scans are performed using dose optimization techniques as appropriate to the performed exam an d include at least one of the following: Automated exposure control, adjustment of the mA and/or kV according t o size, and the use of iterative reconstruction technique.
--- NOTE | 2024-01-05 13:46 | PCM ---
Date of Service Date Seen by Provider: 01/05/24 Time Seen by Provider: 16:00 Admit Day/Time Admission Date: 01/05/24 Admission Time: 13:45 Reason for Admission Chief Complaint: ACUTE CHEST PAIN Hospital Provider Hospital Provider: Kyler Iniguez PA-C, [facility] [place] Primary Care Physician Primary Care Physician: SUNI LOVELL MD History of Present Illness History of Present Illness: Patient is a 78 year old female from home who presented to ER with chest discomfort since last night. In the ER EKG and trops unremarkable. The ERP actually sent EKGs to [place] to be evaluated by park maintenance technician excavating contractor. Mag noted to be low, which appears chronic for patient. She was given morphine, oxygen, nitro, asa. Pt admitted to med surg for chest pain rule out. After speaking with the patient she states that last night she choked while drinking and has since had this pain in her chest. This morning it was worse and she had some associated SOB as well. Daughter is requesting to try a GI cocktail which seems reasonable for this presentation. She states this is rather isolated, she does not choke on her food/drink often. Case Discussed With Case Discussed With: Patient's case was discussed with the ER Physicians, Dr. Powell. [facility] Medical History UTI (urinary tract infection) N39.0 - Urinary tract infection, site not specified (ICD-10) Acute kidney injury N17.9 - Acute kidney failure, unspecified (ICD-10) Seizure R56.9 - Unspecified convulsions (ICD-10) Diabetes E11.9 - Type 2 diabetes mellitus without complications (ICD-10) Surgical History History of bowel resection Z90.49 - Acquired absence of other specified parts of digestive tract (ICD- 10) Family History Mother Aneurysm Seizures Cancer of stomach FATHER Acute myocardial infarction SISTER Cancer Social History Smoking and tobacco status: Never smoker Alcohol intake: never Substance use type: does not use Special oli needs: No Agree to transfusion: Yes Adopted: No Caregiver/support person: No Foster care: No Household members: children Housing: house Marital status: S SINGLE Lives independently: Yes Daycare: no daycare Number of children: 4 service: No prison: No History of recent travel: No Do you think of yourself as: straight/heterosexual Current gender identity: female Seatbelt use: always Drives intoxicated or rides with intoxicated mobile lounge driver or operator: No Water heater temperature set < 120 degrees: Yes Working smoke detector in home: Yes Fire extinguisher in home: Yes Carbon monoxide detector in home: Yes Allergies Allergies Allergy/AdvReac Type Severity Reaction Status Date / Time latex AdvReac Rash Verified 01/05/24 10:00 Penicillins AdvReac Swelling Verified 01/05/24 10:00 Sulfa (Sulfonamide AdvReac Swelling Verified 01/05/24 10:00 Antibiotics) Current Medications Home Medications alprazolam 0.5 mg tablet 0.5 mg PO BID PRN Anxiety 07/15/19 [History Confirmed 01/05/24 Last Taken Unknown] coenzyme Q10 100 mg capsule (CoQ-10) 200 mg PO DAILY 07/15/19 [History Confirmed 01/05/24 Last Taken Unknown] aspirin 81 mg tablet,delayed release 81 mg PO DAILY 11/27/21 [History Confirmed 01/05/24 Last Taken Unknown] meclizine 25 mg chewable tablet 25 mg PO DAILY PRN Dizziness 11/27/21 [History Confirmed 01/05/24 Last Taken Unknown] dmntdjqdbt-wqclichuggxsh-tjfjhgcn 50 mg-325 mg-40 mg capsule 1 cap PO Q6H PRN pain 09/16/22 [History Confirmed 01/05/24 Last Taken Unknown] clopidogrel 75 mg tablet 75 mg PO QDAY 09/16/22 [History Confirmed 01/05/24 Last Taken Unknown] cetirizine 10 mg tablet (Zyrtec) 10 mg PO DAILY PRN Allergic Symptoms #90 tabs 11/10/22 [Rx Confirmed 01/05/24 Last Taken Unknown] ferrous sulfate 325 mg (65 mg iron) tablet (FeroSul) 325 mg PO Q OTHER DAY 11/30/22 [History Confirmed 01/05/24 Last Taken Unknown] blood sugar diagnostic (Accu-Chek Guide test strips) #100 ea 07/04/23 [Rx Confirmed 01/05/24 Last Taken Unknown] memantine 5 mg tablet See Rx Instructions .Route .COMPLEX #180 tabs 07/06/23 [Rx Confirmed 01/05/24 Last Taken Unknown] blood glucose control, low #1 ea 07/12/23 [Rx Confirmed 01/05/24 Last Taken Unknown] blood-glucose meter (Accu-Chek Guide Glucose Meter) #1 ea 07/12/23 [Rx Confirmed 01/05/24 Last Taken Unknown] lancets (Accu-Chek Softclix Lancets) #200 ea 07/12/23 [Rx Confirmed 01/05/24 Last Taken Unknown] omeprazole 20 mg capsule,delayed release See Rx Instructions .Route .COMPLEX #180 caps 08/09/23 [Rx Confirmed 01/05/24 Last Taken Unknown] venlafaxine 75 mg capsule,extended release 24 hr See Rx Instructions .Route .COMPLEX #90 caps 08/28/23 [Rx Confirmed 01/05/24 Last Taken Unknown] cyclobenzaprine 5 mg tablet See Rx Instructions .Route .COMPLEX #90 tabs 09/11/23 [Rx Confirmed 01/05/24 Last Taken Unknown] duloxetine 60 mg capsule,delayed release See Rx Instructions .Route .COMPLEX #90 caps 09/11/23 [Rx Confirmed 01/05/24 Last Taken Unknown] metformin 500 mg tablet 500 mg PO BID CHANGE IN SCRIPT #180 tabs 09/11/23 [Rx Confirmed 01/05/24 Last Taken Unknown] semaglutide 14 mg tablet (Rybelsus) See Rx Instructions .Route .COMPLEX #90 tabs 09/11/23 [Rx Confirmed 01/05/24 Last Taken Unknown] venlafaxine 37.5 mg capsule,extended release 24 hr See Rx Instructions .Route .COMPLEX #90 caps 09/19/23 [Rx Confirmed 01/05/24 Last Taken Unknown] hydroxyzine pamoate 25 mg capsule 25 mg PO .daily #90 caps 09/21/23 [Rx Confirmed 01/05/24 Last Taken Unknown] gabapentin 100 mg capsule See Rx Instructions .Route .COMPLEX #180 caps 11/06/23 [Rx Confirmed 01/05/24 Last Taken Unknown] lacosamide 100 mg tablet 100 mg PO BID #60 tabs 11/29/23 [Rx Confirmed 01/05/24 Last Taken Unknown] allopurinol 300 mg tablet See Rx Instructions .Route .COMPLEX #90 tabs 12/04/23 [Rx Confirmed 01/05/24 Last Taken Unknown] simvastatin 40 mg tablet See Rx Instructions .Route .COMPLEX #90 tabs 12/04/23 [Rx Confirmed 01/05/24 Last Taken Unknown] trazodone 100 mg tablet See Rx Instructions .Route .COMPLEX #90 tabs 12/04/23 [Rx Confirmed 01/05/24 Last Taken Unknown] Home Acetaminophen (Acetaminophen 325 Mg Tablet) 650 mg PO Q4H PRN PRN Reason: Mild Pain Sodium Chloride (Sodium Chloride) 1,000 mls @ 30 mls/hr IV .[id number] ONE Stop: 01/06/24 18:51 MAGNESIUM SULFATE IN WATER (Magnesium Sulf 2 G/50 Ml Bag) 2 gm in 50 mls @ 25 mls/hr IV ONCE ONE Stop: 01/05/24 18:11 Insulin Human Lispro (Insulin Lispro 100 Unit/Ml Vial (3 Ml)) 0 unit SUBCUT PRN PRN; Protocol PRN Reason: Hyperglycemia Nitroglycerin (Nitroglycerin 0.4 Mg Tab.Subl) 0.4 mg SL Q5MIN X 3 DOSES PRN PRN Reason: Chest Pain Last Admin: 01/05/24 10:55 Dose: 0.4 mg Ondansetron HCl (Ondansetron Hcl/Pf 4 Mg/2 Ml Sdv) 4 mg IVP Q6H PRN PRN Reason: Nausea / Vomiting Discontinued Medications Albuterol/Ipratropium (Ipratropium/Albuterol Vial.Neb) 3 ml NEB ONCE STA Stop: 01/05/24 10:37 Last Admin: 01/05/24 11:02 Dose: 3 ml Aspirin (Aspirin 81 Mg Tab.Chew) 243 mg PO ONCE STA Stop: 01/05/24 09:44 Last Admin: 01/05/24 09:51 Dose: 243 mg MAGNESIUM SULFATE IN WATER (Magnesium Sulf 2 G/50 Ml Bag) 2 gm in 50 mls @ 25 mls/hr IV ONCE ONE Stop: 01/05/24 15:58 Lidocaine HCl (Lidocaine Viscous 15 Ml Cup) 15 ml MUCOUSMEMB ONCE ONE Stop: 01/05/24 16:13 Metoprolol Tartrate (Metoprolol Tartrate 5 Mg/5 Ml Vial) 2.5 mg IVP ONCE STA Stop: 01/05/24 09:34 Last Admin: 01/05/24 09:50 Dose: 2.5 mg Morphine Sulfate (Morphine Sulfate 2 Mg/Ml Syringe) 2 mg IVP ONCE ONE Stop: 01/05/24 11:48 Last Admin: 01/05/24 12:06 Dose: 2 mg Ondansetron HCl (Ondansetron Hcl/Pf 4 Mg/2 Ml Sdv) 4 mg IVP ONCE STA Stop: 01/05/24 11:48 Last Admin: 01/05/24 12:05 Dose: 4 mg Opioid Naive vs. Tolerant Does Patient Take Opioids?: No Is Patient Opioid Naive?: Yes What is Opioid Naive?: *Opioid Naive implies the patient is not already taking opioids or not chronically receiving opioids on a daily basis. *PRN dosing is not "usually" associated with tolerance. *Patients are at higher risk of over-sedation and aspiration. Is Patient Opioid Tolerant?: No What is Opioid Tolerant?: *Opioid Tolerance implies less than the expected response to an opioid. *Acquired tolerance is defined by the patient taking 60mg of oral morphine daily (or equianalgesic dose of another opioid) for 1 week or more. *Often associated with chronic pain. *May take more than usual dose to achieve desired pain control. Review of Systems Constitutional: Denies Fever or Fatigue Head: Reports Normocephalic and Atraumatic Throat: Denies Difficulty Swallowing Cardiovascular: Reports Chest pain; Denies Chest Pressure or Edema Respiratory: Reports Cough and Shortness of air Gastrointestinal: Reports Heartburn; Denies Nausea, Vomiting, Diarrhea, Abdominal pain or Melena Genitourinary: Reports Frequency; Denies Dysuria Dermatologic: Denies Rashes Physical examination Most Recent Vital Signs: Most Recent Vital Signs Temperature 98 F 01/05/24 09:39 Temperature Source Temporal Artery Scan 01/05/24 09:39 Pulse Rate 109 H 01/05/24 09:39 Respiratory Rate 15 01/05/24 09:39 Blood Pressure 144/88 H 01/05/24 09:39 O2 Sat by Pulse Oximetry 91 L 01/05/24 09:39 Oxygen Flow Rate 2 01/05/24 09:40 Height 5 ft 6.5 in 01/05/24 09:39 Weight 181 lb 14.102 oz 01/05/24 09:39 Telemetry Heart Rate 94 12/02/21 00:47 Appearance: Positive No Apparent Distress and Alert and Oriented x3 Skin: Positive [place], Warm and Good Turgor; Negative Rashes HEENT: Positive Normocephalic and Atraumatic Neck: Positive Supple and Midline Trachea Chest/Lungs: Positive Clear to Auscultation Bilaterally; Negative Rales, Rhonci or Wheezes Heart: Positive RRR GI/: Positive Soft, Nontender, Bowel Sounds Normal and No Distention Extremities: Negative Edema Neurological: Positive Cranial Nerves Intact, Alert, Oriented and Other (+generalized weakness ) Psychiatric: Positive Oriented x4, Appropriate Mood and Appropriate Affect Labs This Visit Labs This Visit: Labs This Visit 01/05/24 01/05/24 01/05/24 09:54 10:51 11:58 WBC 13.18 H RBC 4.61 Hgb 13.5 Hct 40.6 MCV 88.1 MCH 29.3 MCHC 33.3 RDW Coeff of Alexander 13.9 Plt Count 226 Immature Gran % (Auto) 0.3 Neut % (Auto) 70.3 Lymph % (Auto) 18.8 [place] % (Auto) 6.5 Eos % (Auto) 3.5 Baso % (Auto) 0.6 Neut # (Auto) 9.3 H Lymph # (Auto) 2.5 [place] # (Auto) 0.9 Eos # (Auto) 0.5 Baso # (Auto) 0.1 Immature Gran # (Auto) 0.0 PT 10.0 INR 0.96 APTT 25.4 Puncture Site Lbrach Base Excess 4.0 H O2 Saturation 93.5 L ABG pH 7.47 H ABG pCO2 38.0 ABG pO2 64.0 L ABG HCO3 27.7 ABG Total CO2 28.9 H [place] Test N/a Hemoglobin 1.0 Oxyhemoglobin 91.5 L Carboxyhemoglobin 1.2 Total Hemoglobin 13.8 O2 Delivery Device Cannula Oxygen Liter Flow 2.00 Sodium 134.1 L Potassium 4.05 Chloride 97.6 L Carbon Dioxide 30.2 H Anion Gap 10.35 BUN 14.4 Creatinine 0.77 Estimated GFR (MDRD) 73.00 BUN/Creatinine Ratio 18.70 Glucose 238.1 H Calcium 9.74 Magnesium 1.19 L Total Bilirubin 0.65 AST 49.3 H ALT 31.8 Alkaline Phosphatase 77.1 Troponin I < 0.012 < 0.012 NT-Pro-B Natriuret Pep 444 H Total Protein 7.52 Albumin 4.67 Globulin 2.85 Albumin/Globulin Ratio 1.63 D-Dimer 1077.45 H Imaging Imaging: EXAM: CTA CHEST FOR PE HISTORY: Dyspnea. Elevated D-dimer. COMPARISON: Same day chest radiograph TECHNIQUE: CTA of the chest was performed from the lung apices to the upper abdomen after 75 ml of Omnipaque IV contrast was administered using PE protocol. 3-D imaging was also provided. FINDINGS: There is no filling defect in the pulmonary arteries to the level of the subsegmental pulmonary arteries. The heart is normal without signs of ventricular strain. No pericardial effusion. Normal caliber of the main pulmonary artery. Stable pulmonary nodules in the left lower lobe measuring 15 and 8 mm respectively. There is internal hyperdensity as seen on prior CTs. Hypoventilatory changes at the bilateral lung bases. Stable 13 mm left hilar lymph node with internal hyperdensity, possible calcification. No new or enlarging mediastinal or hilar lymph nodes. Normal caliber of the thoracic aorta. Scattered atherosclerotic calcifications. Age indeterminate mild compression deformity of the T12 vertebral body is new since most recent to 2021 CT but has an overall chronic appearance. IMPRESSION: 1. No evidence of pulmonary embolism. 2. Stable left lower lobe pulmonary nodules measuring up to 15 mm. Multi-year stability is reassuring of benignity. Internal hyperdensity suggests hamartomas or granulomas. 3. Bibasilar hypoventilatory changes. No acute air space disease. 4. Technically age indeterminate compression deformity of the T12 vertebral body. This has an overall chronic appearance but is new compared to most recent to 2021 CTs. EXAM: CHEST RADIOGRAPH TECHNIQUE: Single frontal chest radiograph. HISTORY: Shortness of breath. COMPARISON: and 2023 and older studies. FINDINGS: The patient is mildly leaning to the left. Hypoventilation. Oxygen tubing projects over the patient's chest. No pulmonary infiltrate is identified. No pleural effusion or pneumothorax is seen. Stable borderline cardiomegaly. No acute displaced rib fractures are identified. IMPRESSION: 1. No acute findings in the chest. Review Statement Review Statement: I have independently reviewed and interpreted the labs/EKGs/imaging that were ordered by the ER provider. I have reviewed all outside records that are availa ble currently in our EMR including imaging/notes/labs from previous visits. Plan Plan: 1. Chest pain - Likely related to her aspirating last night, seems non cardiac. Trend EKG and trop. Check lipid and A1c. GI cocktail ordered. Repeat CXR in AM to r/o aspiration pna. 2. Urinary frequency - Check UA 3. Hypomagnesemia - 1.9. 4 gm mag total ordered. Repeat mag in AM. 4. Dementia - Cont home meds 5. DMT2 - Hold metformin, accuchecks achs, moderate humalog ss 6. Hyperlipidemia - Cont home meds 7. Gout - Cont home meds 8. GERD - Cont home meds DVT Prophylaxis: Ambulation Time Spent: Greater than 80 minutes spent with patient, 50% of the time spent with this patient was devoted to counseling and coordination of care. [facility] minutes spent discussing advance care planning. Admit to: Obs Discussed Plan of Care with Dr. Presley Lovell. Medications Medication Orders: Medications Ordered Category Date Time Status Nitroglycerin [Nitrostat] Meds 01/05/24 09:32 Active 0.4 mg SL Q5MIN X 3 DOSES PRN Sodium Chloride 0.9% [Sodium Chloride] 1,000 ml Meds 01/05/24 09:32 Active IV 30 mls/hr
[2024-01-05] MEDS ORDERED: ZOFRAN 4 MG/2 ML IVP PRN (13:59)
[2024-01-05 14:11] LABS: SARS COV-2 RNA RAPID NAAT NEGATIVE (NEGATIVE)
[2024-01-05] MEDS ORDERED: HUMALOG (3 ML) SUBCUT PRN (14:39)
[2024-01-05 15:41] VITALS: BMI 29.0
[2024-01-05] MEDS: MAGNESIUM SULF 2 G/50 ML BAG 2 GM/50 ML PIGGYBACK IV ONE ×2 (16:36→19:45)
[2024-01-05] MEDS: MYLANTA XTRA STRENGTH 30ML CUP PO ONE (16:38)
[2024-01-05] MEDS: LIDOCAINE VISCOUS 2% 15 ML UD MUCOUSMEMB ONE (16:38)
[2024-01-05] MEDS: SODIUM CHLORIDE 1,000 ML IV ONE (16:54)
[2024-01-05] MEDS ORDERED: XANAX PO PRN (19:42)
[2024-01-05] MEDS ORDERED: ANTIVERT PO PRN ×2 (19:42→20:42)
[2024-01-05 20:22] LABS: BILIRUBIN,URINE Negative (NEGATIVE); CLARITY,URINE Clear (CLEAR); COLOR,URINE Yellow (YELLOW); GLUCOSE, URINE (UA) Negative (NEGATIVE); KETONES,URINE Negative (NEGATIVE); LEUKOCYTE ESTERASE ,URINE Negative (NEGATIVE); NITRITE,URINE Negative (NEGATIVE); PROTEIN,URINE Negative (NEGATIVE); URINE, BLOOD Trace-intact (NEGATIVE); UROBILINOGEN,URINE 0.2 (0.2)
[2024-01-05 20:26] LABS: URINE RBC, MICROSCOPIC 0-2 (0-2)
[2024-01-05] MEDS ORDERED: CLARITIN PO PRN (21:18)
[2024-01-05] MEDS: DESYREL PO SCH (21:28)
[2024-01-05] MEDS: PRILOSEC PO SCH (21:28)
[2024-01-05] MEDS: EFFEXOR XR PO SCH (21:28)
[2024-01-05] MEDS: NAMENDA PO SCH (21:29)
[2024-01-05] MEDS: ZOCOR PO SCH (21:29)
[2024-01-05] MEDS: MORPHINE 2 MG/ML SYRINGE IVP PRN (22:28)
[2024-01-06] MEDS: PEPCID PO SCH (00:07)
[2024-01-06 05:18] VITALS: RESP 16
[2024-01-06 05:56] LABS: BASOPHILS # (AUTO) 0.1 K/uL (0-0.2); BASOPHILS % (AUTO) 0.6 % (0.0-3.0); EOSINOPHILS # (AUTO) 0.7 K/ul (0.0-0.7); EOSINOPHILS % (AUTO) 5.1 % (0.0-7.0); HEMATOCRIT 42.6 % (37.0-47.0); IMMATURE GRANULOCYTE % (AUTO) 0.3 % (0.0-5.0); LYMPHOCYTES # (AUTO) 5.1 K/uL (0.60-3.4); LYMPHOCYTES % (AUTO) 39.4 (10.0-50.0); MEAN CORPUSCULAR HEMOGLOBIN 29.5 pg (27.0-31.0); MEAN CORPUSCULAR HGB CONC 32.9 (31.8-35.4); MEAN CORPUSCULAR VOLUME 89.7 fl (81.0-99.0); MONOCYTES # (AUTO) 0.8 K/uL (0.4-2.0); MONOCYTES % (AUTO) 6.3 (0-10); NEUTROPHILS # (AUTO) 6.2 K/ul (2.0-6.9); NEUTROPHILS % (AUTO) 48.3 % (42.2-75.2); PLATELET COUNT 243 10^3/uL (140-440); RED BLOOD COUNT 4.75 10^6/ul (4.20-5.40); WHITE BLOOD COUNT 12.84 K/ul (4.6-10.2)
[2024-01-06] MEDS: TYLENOL PO PRN (05:57)
[2024-01-06 06:11] LABS: ALANINE AMINOTRANSFERASE 33.9 U/L (0-35); ALBUMIN 4.73 g/dL (3.5-5.0); ALKALINE PHOSPHATASE 80.6 U/L (53-141); ASPARTATE AMINO TRANSFERASE 32.5 U/L (14-36); BILIRUBIN,TOTAL 1.1 mg/dL (0.2-1.3); BLOOD UREA NITROGEN 13.7 mg/dL (7-17); CALCIUM 9.37 mg/dL (8.4-10.2); CARBON DIOXIDE 31.5 mmol/L (22-30.0); CHOLESTEROL 140.4 mg/dL (0-200); CREATININE 0.94 mg/dL (0.60-1.30); GLUCOSE 211.2 mg/dL (74-106); HDL CHOLESTEROL 42.9 mg/dL (35-80); MAGNESIUM 2.13 mg/dL (1.6-2.3); POTASSIUM 3.92 mmol/L (3.5-5.1); SODIUM 137.1 mmol/L (134.5-145); TRIGLYCERIDES 176.8 mg/dL (0-150)
[2024-01-06] MEDS: PLAVIX PO SCH (08:22)
[2024-01-06] MEDS: ZYLOPRIM PO SCH (08:22)
[2024-01-06] MEDS: CYMBALTA PO SCH (08:22)
[2024-01-06] MEDS: VISTARIL PO SCH (08:22)
[2024-01-06] MEDS: PRILOSEC PO SCH (08:22)
[2024-01-06] MEDS: ASPIRIN EC PO SCH (08:22)
[2024-01-06] MEDS: EFFEXOR XR PO SCH (08:23)
[2024-01-06] MEDS: FERROUS SULFATE PO SCH (08:23)
[2024-01-06] MEDS ORDERED: EFFEXOR XR PO SCH ×2 (09:00→21:00)
[2024-01-06] MEDS ORDERED: FLEXERIL PO SCH ×2 (09:00→21:00)
[2024-01-06] MEDS ORDERED: NEURONTIN PO SCH ×2 (09:00→21:00)
--- NOTE | 2024-01-06 09:27 | DI ---
EXAM: CHEST RADIOGRAPH TECHNIQUE: Two views. Frontal and lateral. HISTORY: Aspiration. COMPARISON: Chest radiograph and CT from 01/05/2024. FINDINGS: 9 mm pulmonary nodule of the left lower lung laterally, better demonstrated in the recent CT chest. Please refer to that report. Mild atelectasis of the left base. No pleural effusion or pneumothorax is seen. Heart size is normal. No acute displaced rib fractures are identified. Chronic moderate compression fracture of a lower thoracic vertebral body, stable. IMPRESSION: 1. No acute findings in the chest.
--- NOTE | 2024-01-06 10:45 | PCM.PROG ---
Date/Time Seen Date Seen by Provider: 01/06/24 Time Seen by Provider: 09:10 Provider Provider: KYLER INIGUEZ PA-C, [facility] Chief Complaint Chief Complaint: ACUTE CHEST PAIN Subjective Subjective: Patient states her chest pain has resolved. She is feeling better. Mag improved. No changes on EKG. Trops negative. She does however drop O2 saturation while sleeping/snoring. She dropped consistently into the 70s last night and had to be titrated up on O2, was able to be weaned once awake this morning. Daughter at bedside confirms that she does often snore and seem to have JOSE. Objective Appearance: Positive No Apparent Distress and Alert and Oriented x3 Chest/Lungs: Positive Clear to Auscultation Bilaterally; Negative Rales, Rhonci or Wheezes Heart: Positive RRR GI/: Positive Soft, Nontender, Bowel Sounds Normal and No Distention Neurological: Positive Cranial Nerves Intact, Alert, Oriented and Other (+generalized weakness ) Vital Signs Vital Signs: Vital Signs: Last 24 Hours 01/05/24 15:02 01/05/24 15:38 01/05/24 15:41 Temperature 98.2 F Temperature Source Temporal Artery Scan Pulse Rate 102 H Respiratory Rate 17 Blood Pressure Blood Pressure Mean Blood Pressure Left Arm 147/84 Blood Pressure Location Blood Pressure Position Supine O2 Sat by Pulse Oximetry 96 97 Oxygen Delivery Method Nasal Cannula Nasal Cannula Oxygen Flow Rate 2 2 Height 5 ft 6 in Weight 179 lb 11.2 oz Telemetry Type Remote Telemetry Telemetry Monitoring Started Telemetry Heart Rate 101 H Telemetry SPO2 EKG NC Interval 0.19 EKG QRS Interval 0.05 L Telemetry Strip Reading ST 01/05/24 16:00 01/05/24 17:00 01/05/24 18:00 Temperature 98 F Temperature Source Temporal Artery Scan Pulse Rate 106 H Respiratory Rate 19 Blood Pressure 127/79 Blood Pressure Mean 95 Blood Pressure Left Arm Blood Pressure Location Left Arm Blood Pressure Position Sitting O2 Sat by Pulse Oximetry 93 L Oxygen Delivery Method Nasal Cannula Nasal Cannula Nasal Cannula Oxygen Flow Rate 2 Height Weight Telemetry Type Telemetry Monitoring Telemetry Heart Rate Telemetry SPO2 EKG NC Interval EKG QRS Interval Telemetry Strip Reading 01/05/24 18:00 01/05/24 18:00 01/05/24 19:00 Temperature Temperature Source Pulse Rate Respiratory Rate Blood Pressure Blood Pressure Mean Blood Pressure Left Arm Blood Pressure Location Blood Pressure Position O2 Sat by Pulse Oximetry Oxygen Delivery Method Nasal Cannula Nasal Cannula Oxygen Flow Rate Height Weight Telemetry Type Remote Telemetry Telemetry Monitoring Continues Telemetry Heart Rate 101 H Telemetry SPO2 EKG NC Interval 0.16 EKG QRS Interval 0.04 L Telemetry Strip Reading SR 01/05/24 19:00 01/05/24 19:25 01/05/24 20:00 Temperature Temperature Source Pulse Rate Respiratory Rate Blood Pressure Blood Pressure Mean Blood Pressure Left Arm Blood Pressure Location Blood Pressure Position O2 Sat by Pulse Oximetry 93 L Oxygen Delivery Method Nasal Cannula Nasal Cannula Nasal Cannula Oxygen Flow Rate 2 Height Weight Telemetry Type Telemetry Monitoring Telemetry Heart Rate Telemetry SPO2 EKG NC Interval EKG QRS Interval Telemetry Strip Reading 01/05/24 20:00 01/05/24 20:25 01/05/24 21:00 Temperature 97.2 F L Temperature Source Temporal Artery Scan Pulse Rate 99 Respiratory Rate 18 Blood Pressure 142/76 H Blood Pressure Mean 98 Blood Pressure Left Arm Blood Pressure Location Left Arm Blood Pressure Position Supine O2 Sat by Pulse Oximetry 94 L Oxygen Delivery Method Nasal Cannula Nasal Cannula Nasal Cannula Oxygen Flow Rate 2 2 Height Weight Telemetry Type Telemetry Monitoring Telemetry Heart Rate Telemetry SPO2 EKG NC Interval EKG QRS Interval Telemetry Strip Reading 01/05/24 22:00 01/05/24 23:00 01/05/24 23:54 Temperature Temperature Source Pulse Rate Respiratory Rate Blood Pressure Blood Pressure Mean Blood Pressure Left Arm Blood Pressure Location Blood Pressure Position O2 Sat by Pulse Oximetry Oxygen Delivery Method Nasal Cannula Nasal Cannula Nasal Cannula Oxygen Flow Rate Height Weight Telemetry Type Telemetry Monitoring Telemetry Heart Rate Telemetry SPO2 EKG NC Interval EKG QRS Interval Telemetry Strip Reading 01/06/24 01:00 01/06/24 01:00 01/06/24 01:46 Temperature Temperature Source Pulse Rate Respiratory Rate Blood Pressure Blood Pressure Mean Blood Pressure Left Arm Blood Pressure Location Blood Pressure Position O2 Sat by Pulse Oximetry Oxygen Delivery Method Nasal Cannula Nasal Cannula Oxygen Flow Rate Height Weight Telemetry Type Remote Telemetry Telemetry Monitoring Continues Telemetry Heart Rate 101 H Telemetry SPO2 95 EKG NC Interval 0.17 EKG QRS Interval 0.04 L Telemetry Strip Reading ST 01/06/24 02:00 01/06/24 02:53 01/06/24 04:00 Temperature 96.7 F L Temperature Source Temporal Artery Scan Pulse Rate 98 Respiratory Rate 18 Blood Pressure 119/63 Blood Pressure Mean 81 Blood Pressure Left Arm Blood Pressure Location Left Arm Blood Pressure Position Supine O2 Sat by Pulse Oximetry 95 Oxygen Delivery Method Nasal Cannula Nasal Cannula Nasal Cannula Oxygen Flow Rate 2 Height Weight Telemetry Type Telemetry Monitoring Telemetry Heart Rate Telemetry SPO2 EKG NC Interval EKG QRS Interval Telemetry Strip Reading 01/06/24 05:00 01/06/24 05:17 01/06/24 05:56 Temperature 97.3 F L Temperature Source Temporal Artery Scan Pulse Rate 97 Respiratory Rate 16 Blood Pressure 150/86 H Blood Pressure Mean 107 Blood Pressure Left Arm Blood Pressure Location Left Arm Blood Pressure Position Supine O2 Sat by Pulse Oximetry 96 Oxygen Delivery Method Nasal Cannula Nasal Cannula Nasal Cannula Oxygen Flow Rate 2 Height Weight Telemetry Type Telemetry Monitoring Telemetry Heart Rate Telemetry SPO2 EKG NC Interval EKG QRS Interval Telemetry Strip Reading 01/06/24 06:00 01/06/24 07:00 01/06/24 07:00 Temperature Temperature Source Pulse Rate Respiratory Rate Blood Pressure Blood Pressure Mean Blood Pressure Left Arm Blood Pressure Location Blood Pressure Position O2 Sat by Pulse Oximetry Oxygen Delivery Method Nasal Cannula Nasal Cannula Oxygen Flow Rate 3 Height Weight Telemetry Type Remote Telemetry Telemetry Monitoring Continues Telemetry Heart Rate 89 Telemetry SPO2 95 EKG NC Interval 0.16 EKG QRS Interval 0.10 Telemetry Strip Reading SR 01/06/24 07:21 01/06/24 08:00 01/06/24 09:00 Temperature Temperature Source Pulse Rate Respiratory Rate Blood Pressure Blood Pressure Mean Blood Pressure Left Arm Blood Pressure Location Blood Pressure Position O2 Sat by Pulse Oximetry Oxygen Delivery Method Nasal Cannula Nasal Cannula Nasal Cannula Oxygen Flow Rate 2 Height Weight Telemetry Type Telemetry Monitoring Telemetry Heart Rate Telemetry SPO2 EKG NC Interval EKG QRS Interval Telemetry Strip Reading 01/06/24 10:00 01/06/24 10:00 Temperature 97.7 F Temperature Source Temporal Artery Scan Pulse Rate 87 Respiratory Rate 16 Blood Pressure 131/76 Blood Pressure Mean 94 Blood Pressure Left Arm Blood Pressure Location Left Arm Blood Pressure Position Sitting O2 Sat by Pulse Oximetry 93 L Oxygen Delivery Method Nasal Cannula Room Air Oxygen Flow Rate Height Weight Telemetry Type Telemetry Monitoring Telemetry Heart Rate Telemetry SPO2 EKG NC Interval EKG QRS Interval Telemetry Strip Reading Lab Results Lab Results: Lab Results: Last 24 Hours 01/06/24 01/06/24 01/05/24 05:41 00:05 20:15 WBC 12.84 H RBC 4.75 Hgb 14.0 Hct 42.6 MCV 89.7 MCH 29.5 MCHC 32.9 RDW Coeff of Alexander 14.0 Plt Count 243 Immature Gran % (Auto) 0.3 Neut % (Auto) 48.3 Lymph % (Auto) 39.4 [place] % (Auto) 6.3 Eos % (Auto) 5.1 Baso % (Auto) 0.6 Neut # (Auto) 6.2 Lymph # (Auto) 5.1 H [place] # (Auto) 0.8 Eos # (Auto) 0.7 Baso # (Auto) 0.1 Immature Gran # (Auto) 0.0 Puncture Site Base Excess O2 Saturation ABG pH ABG pCO2 ABG pO2 ABG HCO3 ABG Total CO2 [place] Test Hemoglobin Oxyhemoglobin Carboxyhemoglobin Total Hemoglobin O2 Delivery Device Oxygen Liter Flow Sodium 137.1 Potassium 3.92 Chloride 98.0 Carbon Dioxide 31.5 H Anion Gap 11.52 BUN 13.7 Creatinine 0.94 Estimated GFR (MDRD) 58.00 BUN/Creatinine Ratio 14.57 Glucose 211.2 H Hemoglobin A1c 7.63 H Calcium 9.37 Magnesium 2.13 Total Bilirubin 1.10 AST 32.5 ALT 33.9 Alkaline Phosphatase 80.6 Troponin I < 0.012 Total Protein 8.00 Albumin 4.73 Globulin 3.27 Albumin/Globulin Ratio 1.44 Triglycerides 176.8 H Cholesterol 140.4 LDL Cholesterol, Calc 62 VLDL Cholesterol 35 H HDL Cholesterol 42.9 Cholesterol/HDL Ratio 3.3 L D-Dimer Urine Color Yellow Urine Clarity Clear Urine pH 6.0 Ur Specific [place] 1.015 Urine Protein Negative Urine Glucose (UA) Negative Urine Ketones Negative Urine Blood Trace-intact H Urine Nitrite Negative Urine Bilirubin Negative Urine Urobilinogen 0.2 Ur Leukocyte Esterase Negative Urine Microscopic RBC 0-2 Ur Squamous Epith Cells 10-20 SARS CoV-2 RNA Rapid SABINA 01/05/24 01/05/24 01/05/24 18:55 13:45 11:58 WBC RBC Hgb Hct MCV MCH MCHC RDW Coeff of Alexander Plt Count Immature Gran % (Auto) Neut % (Auto) Lymph % (Auto) [place] % (Auto) Eos % (Auto) Baso % (Auto) Neut # (Auto) Lymph # (Auto) [place] # (Auto) Eos # (Auto) Baso # (Auto) Immature Gran # (Auto) Puncture Site Base Excess O2 Saturation ABG pH ABG pCO2 ABG pO2 ABG HCO3 ABG Total CO2 [place] Test Hemoglobin Oxyhemoglobin Carboxyhemoglobin Total Hemoglobin O2 Delivery Device Oxygen Liter Flow Sodium Potassium Chloride Carbon Dioxide Anion Gap BUN Creatinine Estimated GFR (MDRD) BUN/Creatinine Ratio Glucose Hemoglobin A1c Calcium Magnesium Total Bilirubin AST ALT Alkaline Phosphatase Troponin I < 0.012 < 0.012 Total Protein Albumin Globulin Albumin/Globulin Ratio Triglycerides Cholesterol LDL Cholesterol, Calc VLDL Cholesterol HDL Cholesterol Cholesterol/HDL Ratio D-Dimer Urine Color Urine Clarity Urine pH Ur Specific [place] Urine Protein Urine Glucose (UA) Urine Ketones Urine Blood Urine Nitrite Urine Bilirubin Urine Urobilinogen Ur Leukocyte Esterase Urine Microscopic RBC Ur Squamous Epith Cells SARS CoV-2 RNA Rapid SABINA Negative 01/05/24 01/05/24 10:51 09:54 WBC RBC Hgb Hct MCV MCH MCHC RDW Coeff of Alexander Plt Count Immature Gran % (Auto) Neut % (Auto) Lymph % (Auto) [place] % (Auto) Eos % (Auto) Baso % (Auto) Neut # (Auto) Lymph # (Auto) [place] # (Auto) Eos # (Auto) Baso # (Auto) Immature Gran # (Auto) Puncture Site Lbrach Base Excess 4.0 H O2 Saturation 93.5 L ABG pH 7.47 H ABG pCO2 38.0 ABG pO2 64.0 L ABG HCO3 27.7 ABG Total CO2 28.9 H [place] Test N/a Hemoglobin 1.0 Oxyhemoglobin 91.5 L Carboxyhemoglobin 1.2 Total Hemoglobin 13.8 O2 Delivery Device Cannula Oxygen Liter Flow 2.00 Sodium Potassium Chloride Carbon Dioxide Anion Gap BUN Creatinine Estimated GFR (MDRD) BUN/Creatinine Ratio Glucose Hemoglobin A1c Calcium Magnesium 1.19 L Total Bilirubin AST ALT Alkaline Phosphatase Troponin I Total Protein Albumin Globulin Albumin/Globulin Ratio Triglycerides Cholesterol LDL Cholesterol, Calc VLDL Cholesterol HDL Cholesterol Cholesterol/HDL Ratio D-Dimer 1077.45 H Urine Color Urine Clarity Urine pH Ur Specific [place] Urine Protein Urine Glucose (UA) Urine Ketones Urine Blood Urine Nitrite Urine Bilirubin Urine Urobilinogen Ur Leukocyte Esterase Urine Microscopic RBC Ur Squamous Epith Cells SARS CoV-2 RNA Rapid SABINA Additional Comments Additional Comments: I have independently reviewed and interpreted the labs/EKGs/imaging ordered during this hospital stay. I have reviewed outside records that are available in our EMR that pertain to medical stay including imaging/notes/labs from previous visits. Active Medications Active Medications: Medications Generic Name Dose Route Start Last Admin Trade Name Kathleen PRN Reason Stop Dose Admin Acetaminophen 650 mg 01/05/24 13:59 01/06/24 05:57 Acetaminophen 325 Mg Tablet PO 650 mg Q4H PRN Administration Mild Pain Allopurinol 300 mg 01/06/24 09:00 01/06/24 08:22 Allopurinol 100 Mg Tablet PO 300 mg DAILY AMPARO Administration Alprazolam 0.5 mg 01/05/24 19:42 Alprazolam 0.5 Mg Tablet PO BID PRN Anxiety Aspirin 81 mg 01/06/24 09:00 01/06/24 08:22 Aspirin 81 Mg Tablet. PO 81 mg DAILYWM2 AMPARO Administration Clopidogrel Bisulfate 75 mg 01/06/24 09:00 01/06/24 08:22 Clopidogrel Bisulfate 75 Mg Tablet PO 75 mg DAILY AMPARO Administration Cyclobenzaprine HCl 5 mg 01/06/24 21:00 Cyclobenzaprine Hcl 10 Mg Tablet PO BEDTIME AMPARO Duloxetine HCl 60 mg 01/06/24 09:00 01/06/24 08:22 Duloxetine Hcl 30 Mg Capsule. PO 60 mg DAILY AMPARO Administration Famotidine 20 mg 01/05/24 23:40 01/06/24 05:09 Famotidine 20 Mg Tablet PO 20 mg BIDAC2 AMPARO Administration Ferrous Sulfate 324 mg 01/06/24 09:00 01/06/24 08:23 Ferrous Sulfate 324 Mg Tablet. PO 324 mg Q48H AMPARO Administration Gabapentin 200 mg 01/06/24 21:00 Gabapentin 100 Mg Capsule PO BEDTIME AMPARO Hydroxyzine Pamoate 25 mg 01/06/24 09:00 01/06/24 08:22 Hydroxyzine Pamoate 25 Mg Capsule PO 25 mg DAILY AMPARO Administration Loratadine 10 mg 01/05/24 21:18 Loratadine 10 Mg Tablet PO DAILY PRN ALLERGY SYMPTOMS Meclizine HCl 25 mg 01/05/24 20:42 Meclizine Hcl 25 Mg Tablet PO TID PRN dizziness Memantine 5 mg 01/05/24 21:07 01/06/24 08:22 Memantine Hcl 10 Mg Tablet PO 5 mg BID AMPARO Administration Morphine Sulfate 1 mg 01/05/24 21:24 01/05/24 22:28 Morphine Sulfate 2 Mg/Ml Syringe IVP 1 mg Q6H PRN Administration Pain Nitroglycerin 0.4 mg 01/05/24 09:32 01/05/24 10:55 Nitroglycerin 0.4 Mg Tab.Subl SL 0.4 mg Q5MIN X 3 DOSES PRN Administration Chest Pain Non-Formulary Medication 100 mg 01/05/24 21:00 01/06/24 08:24 Lacosamide PO 100 mg BID AMPARO Administration Non-Formulary Medication 14 mg 01/06/24 07:30 01/06/24 07:38 Semaglutide [Rybelsus] PO 14 mg QDAC2 AMPARO Administration Omeprazole 20 mg 01/06/24 08:30 01/06/24 08:22 Omeprazole 20 Mg Capsule.Dr PO 20 mg 0830,1800 AMPARO Administration Ondansetron HCl 4 mg 01/05/24 13:59 Ondansetron Hcl/Pf 4 Mg/2 Ml Sdv IVP Q6H PRN Nausea / Vomiting Simvastatin 40 mg 01/05/24 21:16 01/05/24 21:29 Simvastatin 40 Mg Tablet PO 40 mg BEDTIME AMPARO Administration Sodium Chloride 1 syr 01/06/24 05:15 01/06/24 05:19 0.9% Sodium Chloride 10 Ml Disp.Syrin IVF 1 syr Q8HR AMPARO Administration Trazodone HCl 100 mg 01/05/24 21:00 01/05/24 21:28 Trazodone Hcl 50 Mg Tablet PO 100 mg BEDTIME AMPARO Administration Venlafaxine HCl 37.5 mg 01/06/24 21:00 Venlafaxine Hcl 37.5 Mg Cap.Er.24h PO BEDTIME AMPARO Venlafaxine HCl 75 mg 01/06/24 09:00 01/06/24 08:23 Venlafaxine Hcl 75 Mg Cap.Er.24h PO 75 mg DAILY AMPARO Administration Plan Plan: 1. Chest pain - Resolved, non cardiac related. Likely related to her aspirating the night prior. Trops negative and EKG unchanged. Repeat CXR unchanged. Pepcid added. 2. Urinary frequency - UA negative for infection 3. Hypomagnesemia - resolved. 1.19 initially, 2.1 today. 4 gm mag total given. 4. Dementia - Cont home meds 5. DMT2 - Hold metformin, pt allergic to insulin injections, cont oral rybelsus. 6. Hyperlipidemia - Cont home meds 7. Gout - Cont home meds 8. GERD - Cont home meds 9. Hypoxia with sleep - Suspect JOSE. Will do overnight oximetry to see if we can qualify patient for O2 to bridge her until she can get an outpatient sleep study. Dispo: Will make inpatient today as patient requires further work up and monitoring of hypoxia. Review Statement Review Statement: I have personally discussed and reviewed the patient's visit/currently labs/imaging/decision making with Dr. Lovell, my supervising attending. Greater that 50 minutes spent with patient, 50% of the time spent with this patient was devoted to counseling and coordination of care.
[2024-01-06 18:50] VITALS: BP 145/82; PULSE 87; TEMP 97.8
--- NOTE | 2024-01-06 19:17 | DCSUM ---
Admission Date Admission Date: 01/05/24 Discharge Date Discharge Date: 01/07/24 Admission Diagnosis Admission Diagnosis: 1. Chest pain Discharge Diagnosis Discharge Diagnosis: 1. Chest pain - Resolved, non cardiac related. 2. Urinary frequency - UA negative for infection 3. Hypomagnesemia - resolved. 4. Dementia 5. DMT2 6. Hyperlipidemia 7. Gout 8. GERD 9. Hypoxia with sleep - Suspect JOSE. Hospital Provider Hospital Provider: KYLER INIGUEZ PA-C, [facility] Primary Care Physician Primary Care Physician: SUNI YAO MD Summary of History and Physical Summary of History and Physical: Patient is a 78 year old female from home who presented to ER with chest discomfort since last night. In the ER EKG and trops unremarkable. 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 Mag noted to be low, which appears chronic for patient. She was given morphine, oxygen, nitro, asa. Pt admitted to [facility] for chest pain rule out. After speaking with the patient she states that last night she choked while drinking and has since had this pain in her chest. This morning it was worse and she had some associated SOB as well. Daughter is requesting to try a GI cocktail which seems reasonable for this presentation. She states this is rather isolated, she does not choke on her food/drink often. Hospital Course Subjective: Patient's chest pain resolved by following morning. Trops negative and repeat EKG unchanged. She was given gi cocktail, pepcid, in addition to her PPI. Discussed chest discomfort likely due from aspirating her drink, not cardiac related at this time. Repeat CXR performed to evaluate for developing pna but it was normal. Pt did have apneic episodes during the night causing hypoxia. Discussed staying overnight for overnight oximetry, discussed with pt and daughter that there are times we can get oxygen covered, to bridge until she can get an outpatient sleep study. However there are times depending on insurance, [employer], etc that it is not covered. However I would recommend trying since she is hypoxic while sleeping/snoring. Daughter was very unsure on if they wanted to stay overnight again as she had been very unhappy with the work flow up until this point, they then decided they would stay. Later in the evening, patient and daughter were again unhappy with multiple complaints and asked to be discharged. Pt discharged to home. Advised to f/u with pcp this week to order sleep study. Appearance: No Apparent Distress and Alert HEENT: MMM and Supple CVS: No Murmur Abdomen: Soft, Non-Tender and No Distention Respiratory: No Accessory Muscle Use Extremities: No Edema Vital Signs: Most Recent Vital Signs Temperature 97.8 F 01/06/24 18:00 Temperature Source Oral 01/06/24 18:00 Temperature Source Temporal Artery Scan 01/05/24 09:39 Pulse Rate 87 01/06/24 18:00 Respiratory Rate 16 01/06/24 18:00 Blood Pressure 145/82 H 01/06/24 18:00 Blood Pressure Mean 103 01/06/24 18:00 Blood Pressure Left Arm 147/84 01/05/24 15:02 Blood Pressure Location Left Arm 01/06/24 18:00 Blood Pressure Position Supine 01/06/24 18:00 O2 Sat by Pulse Oximetry 92 L 01/06/24 18:00 Oxygen Delivery Method Room Air 01/06/24 18:00 Oxygen Flow Rate 2 01/06/24 07:21 Height 5 ft 6 in 01/05/24 15:02 Weight 179 lb 11.2 oz 01/05/24 15:02 Telemetry Type Remote Telemetry 01/06/24 12:45 Telemetry Monitoring Continues 01/06/24 12:45 Telemetry Heart Rate 95 01/06/24 12:45 Telemetry SPO2 93 01/06/24 12:45 EKG MO Interval 0.20 01/06/24 12:45 EKG QRS Interval 0.08 01/06/24 12:45 Telemetry Strip Reading SR 01/06/24 12:45 Pulse Oximetry Type Remote Telemetry 01/06/24 12:44 Pulse Oximetry Monitoring Continues 01/06/24 12:44 Imaging: EXAM: CTA CHEST FOR PE HISTORY: Dyspnea. Elevated D-dimer. COMPARISON: Same day chest radiograph TECHNIQUE: CTA of the chest was performed from the lung apices to the upper abdomen after 75 ml of Omnipaque IV contrast was administered using PE protocol. 3-D imaging was also provided. FINDINGS: There is no filling defect in the pulmonary arteries to the level of the subsegmental pulmonary arteries. The heart is normal without signs of ventricular strain. No pericardial effusion. Normal caliber of the main pulmonary artery. Stable pulmonary nodules in the left lower lobe measuring 15 and 8 mm respectively. There is internal hyperdensity as seen on prior CTs. Hypoventilatory changes at the bilateral lung bases. Stable 13 mm left hilar lymph node with internal hyperdensity, possible calcification. No new or enlarging mediastinal or hilar lymph nodes. Normal caliber of the thoracic aorta. Scattered atherosclerotic calcifications. Age indeterminate mild compression deformity of the T12 vertebral body is new since most recent to 2021 CT but has an overall chronic appearance. IMPRESSION: 1. No evidence of pulmonary embolism. 2. Stable left lower lobe pulmonary nodules measuring up to 15 mm. Multi-year stability is reassuring of benignity. Internal hyperdensity suggests hamartomas or granulomas. 3. Bibasilar hypoventilatory changes. No acute air space disease. 4. Technically age indeterminate compression deformity of the T12 vertebral body. This has an overall chronic appearance but is new compared to most recent to 2021 CTs. EXAM: CHEST RADIOGRAPH TECHNIQUE: Single frontal chest radiograph. HISTORY: Shortness of breath. COMPARISON: and 2023 and older studies. FINDINGS: The patient is mildly leaning to the left. Hypoventilation. Oxygen tubing projects over the patient's chest. No pulmonary infiltrate is identified. No pleural effusion or pneumothorax is seen. Stable borderline cardiomegaly. No acute displaced rib fractures are identified. IMPRESSION: 1. No acute findings in the chest. EXAM: CHEST RADIOGRAPH TECHNIQUE: Two views. Frontal and lateral. HISTORY: Aspiration. COMPARISON: Chest radiograph and CT from 01/05/2024. FINDINGS: 9 mm pulmonary nodule of the left lower lung laterally, better demonstrated in the recent CT chest. Please refer to that report. Mild atelectasis of the left base. No pleural effusion or pneumothorax is seen. Heart size is normal. No acute displaced rib fractures are identified. Chronic moderate compression fracture of a lower thoracic vertebral body, stable. IMPRESSION: 1. No acute findings in the chest. Lab Results Last 24 Hours: 01/06/24 01/06/24 01/05/24 05:41 00:05 20:15 WBC 12.84 H RBC 4.75 Hgb 14.0 Hct 42.6 MCV 89.7 MCH 29.5 MCHC 32.9 RDW Coeff of Alexander 14.0 Plt Count 243 Immature Gran % (Auto) 0.3 Neut % (Auto) 48.3 Lymph % (Auto) 39.4 [place] % (Auto) 6.3 Eos % (Auto) 5.1 Baso % (Auto) 0.6 Neut # (Auto) 6.2 Lymph # (Auto) 5.1 H [place] # (Auto) 0.8 Eos # (Auto) 0.7 Baso # (Auto) 0.1 Immature Gran # (Auto) 0.0 Sodium 137.1 Potassium 3.92 Chloride 98.0 Carbon Dioxide 31.5 H Anion Gap 11.52 BUN 13.7 Creatinine 0.94 Estimated GFR (MDRD) 58.00 BUN/Creatinine Ratio 14.57 Glucose 211.2 H Hemoglobin A1c 7.63 H Calcium 9.37 Magnesium 2.13 Total Bilirubin 1.10 AST 32.5 ALT 33.9 Alkaline Phosphatase 80.6 Troponin I < 0.012 Total Protein 8.00 Albumin 4.73 Globulin 3.27 Albumin/Globulin Ratio 1.44 Triglycerides 176.8 H Cholesterol 140.4 LDL Cholesterol, Calc 62 VLDL Cholesterol 35 H HDL Cholesterol 42.9 Cholesterol/HDL Ratio 3.3 L Urine Color Yellow Urine Clarity Clear Urine pH 6.0 Ur Specific [place]yer 1.015 Urine Protein Negative Urine Glucose (UA) Negative Urine Ketones Negative Urine Blood Trace-intact H Urine Nitrite Negative Urine Bilirubin Negative Urine Urobilinogen 0.2 Ur Leukocyte Esterase Negative Urine Microscopic RBC 0-2 Ur Squamous Epith Cells 10-20 01/05/24 18:55 WBC RBC Hgb Hct MCV MCH MCHC RDW Coeff of Alexander Plt Count Immature Gran % (Auto) Neut % (Auto) Lymph % (Auto) [place] % (Auto) Eos % (Auto) Baso % (Auto) Neut # (Auto) Lymph # (Auto) [place] # (Auto) Eos # (Auto) Baso # (Auto) Immature Gran # (Auto) Sodium Potassium Chloride Carbon Dioxide Anion Gap BUN Creatinine Estimated GFR (MDRD) BUN/Creatinine Ratio Glucose Hemoglobin A1c Calcium Magnesium Total Bilirubin AST ALT Alkaline Phosphatase Troponin I < 0.012 Total Protein Albumin Globulin Albumin/Globulin Ratio Triglycerides Cholesterol LDL Cholesterol, Calc VLDL Cholesterol HDL Cholesterol Cholesterol/HDL Ratio Urine Color Urine Clarity Urine pH Ur Specific [place] Urine Protein Urine Glucose (UA) Urine Ketones Urine Blood Urine Nitrite Urine Bilirubin Urine Urobilinogen Ur Leukocyte Esterase Urine Microscopic RBC Ur Squamous Epith Cells Discharge Instructions Discharge Planning: Discharge Planning > [address] Presley Yao. Discharge Medications: Medications at Discharge (Home Meds & RX) Discharge Plan Discharge Discharge Orders: Discharge Patient (ONCE); Ordered 01/06/24 Ordered By: KYLER INIGUEZ Activity Restrictions/Additional Instructions: DISCHARGE TO HOME DX: CHEST DISCOMFORT DIET: HEART HEALTHY/DIABETIC ACTIVITY: TOLERATED FOLLOW UP WITH DR. VIEYRA OFFICE THIS COMING WEEK MAY ADD PEPCID 20 MG DAILY OVER THE COUNTER IF SYMPTOMS CONTINUE HIGHLY RECOMMEND OUTPATIENT SLEEP STUDY DUE TO OXYGEN DROPPING WHILE SLEEPING Instructions: Chest Pain (GEN) Patient Disposition: HOME WITH FAMILY CARE Prescriptions: Continued cetirizine [Zyrtec] 10 mg tablet 10 mg PO DAILY PRN (Reason: Allergic Symptoms) Qty: 90 1RF memantine 5 mg tablet See Rx Instructions .ROUTE .COMPLEX Qty: 180 1RF Dose Instruction: TAKE ONE TABLET BY MOUTH TWICE DAILY Rx Instructions: TAKE ONE TABLET BY MOUTH TWICE DAILY omeprazole 20 mg capsule,delayed release(DR/EC) See Rx Instructions .ROUTE .COMPLEX Qty: 180 1RF Dose Instruction: TAKE 1 CAPSULE TWICE DAILY Rx Instructions: TAKE 1 CAPSULE TWICE DAILY venlafaxine 75 mg capsule,extended release 24hr See Rx Instructions .ROUTE .COMPLEX Qty: 90 1RF Dose Instruction: TAKE 1 CAPSULE EVERY DAY Rx Instructions: TAKE 1 CAPSULE EVERY DAY duloxetine 60 mg capsule,delayed release(DR/EC) See Rx Instructions .ROUTE .COMPLEX Qty: 90 3RF Dose Instruction: TAKE 1 CAPSULE EVERY DAY Rx Instructions: TAKE 1 CAPSULE EVERY DAY cyclobenzaprine 5 mg tablet See Rx Instructions .ROUTE .COMPLEX Qty: 90 3RF Dose Instruction: TAKE 1 TABLET EVERY DAY Rx Instructions: TAKE 1 TABLET EVERY DAY Rybelsus 14 mg tablet See Rx Instructions .ROUTE .COMPLEX Qty: 90 3RF Dose Instruction: TAKE 1 TABLET EVERY DAY Rx Instructions: TAKE 1 TABLET EVERY DAY metformin 500 mg tablet 500 mg PO BID Qty: 180 3RF venlafaxine 37.5 mg capsule,extended release 24hr See Rx Instructions .ROUTE .COMPLEX Qty: 90 1RF Dose Instruction: TAKE 1 CAPSULE AT BEDTIME Rx Instructions: TAKE 1 CAPSULE AT BEDTIME hydroxyzine pamoate 25 mg capsule 25 mg PO .daily Qty: 90 1RF gabapentin 100 mg capsule See Rx Instructions .ROUTE .COMPLEX Qty: 180 3RF Dose Instruction: TAKE 2 CAPSULES EVERY DAY Rx Instructions: TAKE 2 CAPSULES EVERY DAY lacosamide 100 mg tablet 100 mg PO BID Qty: 60 2RF allopurinol 300 mg tablet See Rx Instructions .ROUTE .COMPLEX Qty: 90 3RF Dose Instruction: TAKE 1 TABLET EVERY DAY Rx Instructions: TAKE 1 TABLET EVERY DAY simvastatin 40 mg tablet See Rx Instructions .ROUTE .COMPLEX Qty: 90 3RF Dose Instruction: TAKE 1 TABLET EVERY DAY Rx Instructions: TAKE 1 TABLET EVERY DAY trazodone 100 mg tablet See Rx Instructions .ROUTE .COMPLEX Qty: 90 3RF Dose Instruction: TAKE 1 TABLET AT BEDTIME Rx Instructions: TAKE 1 TABLET AT BEDTIME aspirin 81 mg Tablet,Delayed Release (Dr/Ec) 81 mg PO DAILY meclizine 25 mg tablet,chewable 25 mg PO DAILY PRN (Reason: Dizziness) Patient Comments: TAKE ONE TABLET BY MOUTH THREE TIMES DAILY NEEDED FOR dizziness. DO not take with vistaril OR xanax alprazolam 0.5 mg Tablet 0.5 mg PO BID PRN (Reason: Anxiety) coenzyme Q10 [CoQ-10] 100 mg Capsule 200 mg PO DAILY clopidogrel 75 mg tablet 75 mg PO QDAY [id number]-[id number] 50-325-40 mg capsule 1 cap PO Q6H PRN (Reason: pain) ferrous sulfate [FeroSul] 325 mg (65 mg iron) tablet 325 mg PO Q OTHER DAY No Action (DME) Accu-Chek Guide test strips Strip See Rx Instructions .ROUTE Qty: 100 5RF Rx Instructions: As directed DM2 E11.9 TEST TWO TIMES DAILY (DME) blood glucose control, low Solution See Rx Instructions .ROUTE Qty: 1 2RF Rx Instructions: As directed DM2 E11.9 TEST TWO TIMES DAILY (DME) blood-glucose meter [Accu-Chek Guide Glucose Meter] Misc See Rx Instructions .ROUTE Qty: 1 0RF Rx Instructions: As directed DM2 E11.9 TEST TWO TIMES DAILY (DME) lancets [Accu-Chek Softclix Lancets] Misc See Rx Instructions .ROUTE Qty: 200 2RF Rx Instructions: As directed DM2 E11.9 TEST TWO TIMES DAILY Did you review [place] [employer] for ALL controlled substances?: Not Applicable Discussed opioids are addictive and Narcan is available by prescription or from pharmacy.: No Condition: Stable
[2024-01-06] MEDS ORDERED: PEPCID PO SCH (21:30)
== END 2024-01-06 19:38 | disposition home or self-care (01) | DRG 313 ==
LOC: ED 09:21 → MEDSURG B 09:21 → OBSVTOIN 14:14 → INTOOBSV 14:14 → MEDSURG B 15:12 → UNDODISOB 01-06 19:38
PROVIDERS: ADMIT Hospitalist; ATTEND Physician Assistant
DX: M10.9 Gout, unspecified; F03.90 Unspecified dementia, unspecified severity, without behavioral disturbance, psychotic disturbance, mood disturbance, and anxiety; R35.0 Frequency of micturition; E78.5 Hyperlipidemia, unspecified; R07.89 Other chest pain; E11.42 Type 2 diabetes mellitus with diabetic polyneuropathy; E11.22 Type 2 diabetes mellitus with diabetic chronic kidney disease; N18.9 Chronic kidney disease, unspecified; E83.42 Hypomagnesemia; K21.9 Gastro-esophageal reflux disease without esophagitis; G47.33 Obstructive sleep apnea (adult) (pediatric)